=== PATIENT | female | born 2000 | race Caucasian/White ===

== ENCOUNTER 2023-12-24 10:50 | Emergency (ER) | payer SELFPAY ==
[2023-12-24 10:54] VITALS: BP 148/86; PULSE 79; TEMP 36.4; O2SAT 97; BMI 44.9
--- NOTE | 2023-12-24 11:19 | ED_ITS ---
HPI HPI - General Adult General Chief complaint: Abdominal Pain Stated complaint: BLOOD IN STOOL, SORE THROAT Time Seen by Provider: 12/24/23 10:54 Source: patient Mode of arrival: walk-in Limitations: no limitations History of Present Illness HPI narrative: 23 F to female to the emergency Department with multiple medical complaints. Sore Throat- Patient reports that she has had a sore throat that has been ongoing for several weeks to months. She's been seen by urgent care and her primary care doctor. She's been on several rounds of medications and has not improved. It is worse at night. Associated with the cough at night. Rectal discomfort/bleeding- patient has had intermittent difficulties with hemorrhoids for several years. She is under the care of gastrointestinal. He cannot get her in for an appointment. She reports a small amount of bright red blood with stools. She reports discomfort in bulging in the inguinal region consistent with past hemorrhoids. Related Data Previous Rx's ?Medication ?Instructions ?Recorded hydrocortisone 1 % topical cream 1 applic topical BID PRN rectal 12/24/23 (Proctocort) pain 7 days #28.35 grams lidocaine 5 %-phenylephrine 0.25 1 applic topical TID PRN 12/24/23 %-glycern 14.4 %-petrolatm 15 % hemorrhoids #28 grams cream (Preparation H Rapid Relief-Lidocaine) loratadine 10 mg tablet (Claritin) 10 mg PO DAILY #30 tabs 12/24/23 omeprazole 20 mg tablet,delayed 20 mg PO DAILY 8 weeks #56 tabs 12/24/23 release Allergies Allergy/AdvReac Type Severity Reaction Status Date / Time No Known Drug Allergies Allergy Verified 12/24/23 11:00 Opioid HPI Opioid Management Most Recent Opioid Data: No Data to Display Review of Systems ROS Status of ROS 10 or more systems reviewed and unremark able except as noted in history and below Exam Narrative Exam Narrative: VITALS: I have reviewed the triage vital signs. GENERAL: Well developed, well appearing adult in no acute distress. NEURO: Alert and oriented. Moves all extremities. Face is symmetric and expressive. EYES: PERRL. No scleral icterus or conjunctival injection. No discharge. HENT: Normocephalic, atraumatic. Hearing is grossly intact. Nares grossly patent and without discharge. Mucous membranes moist. Uvula midline. No unilateral peritonsillar swelling. No posterior pharyngeal erythema. NECK: No JVD. Patient moves neck without restriction. GI/: Abdomen is soft and non-tender. Normoactive bowel sounds. EXTREMITIES: Symmetric muscle bulk. No joint swelling. No clubbing, cyanosis, or deformity. SKIN: Warm and dry. Normal turgor. No rash or lesions appreciated. PSYCH: Mood, affect, and interaction is appropriate to the setting. Constitutional Vital Signs, click to edit/add: Last Vital Signs Temp 97.6 F 12/24/23 10:54 Pulse 79 12/24/23 10:54 Resp 16 12/24/23 10:54 BP 148/86 H 12/24/23 10:54 Pulse Ox 97 12/24/23 10:54 O2 Del Method Room Air 12/24/23 10:54 Course Vital Signs Vital signs: Vital Signs Temperature 97.6 F 12/24/23 10:54 Pulse Rate 79 12/24/23 10:54 Respiratory Rate 16 12/24/23 10:54 Blood Pressure 148/86 H 12/24/23 10:54 Pulse Oximetry 97 12/24/23 10:54 Oxygen Delivery Method Room Air 12/24/23 10:54 Temperature 97.6 F 12/24/23 10:54 Pulse Rate 79 12/24/23 10:54 Respiratory Rate 16 12/24/23 10:54 Blood Pressure 148/86 H 12/24/23 10:54 Pulse Oximetry 97 12/24/23 10:54 Oxygen Delivery Method Room Air 12/24/23 10:54 Medical Decision Making MDM Narrative Medical decision making narrative: 23-year-old female multiple complaints. Vital stable, the patient is afebrile. History and clinical exam associated with the sore throat are most consistent with GERD. We'll trial of omeprazole. She'll follow-up with her gastrointestinal doctor. Patient is not comfortable having male doctor examine her anus. She reports symptoms typical leg treatment of past hemorrhoids. We'll prescribe her Preparation H/lidocaine and rectal hydrocortisone. She'll follow-up with her gastrointestinal doctor. She also reports she has had some increased sneezing and believe she has ALLERGIES. Claritin is prescribed. Patient follow-up with primary care doctor. Return precautions were discussed. All questions were answered. The patient was discharged home. Medical Records Medical records reviewed: Yes I reviewed the patient's medical records Discharge Plan Discharge Stand Alone Forms: Portal Instructions Chief Complaint: Abdominal Pain Clinical Impression: Acute hemorrhoid, Allergies, Gastroesophageal reflux disease Patient Disposition: Home, Self-Care Time of Disposition Decision: 11:11 Condition: Good Mode of Transportation: Private Vehicle Prescriptions / Home Meds: New loratadine [Claritin] 10 mg tablet 10 mg PO DAILY Qty: 30 0RF hydrocortisone [Proctocort] 1 % cream 1 applic topical BID PRN (Reason: rectal pain) 7 Days Qty: 28.35 0RF Preparation H Rapid Rlf-Lidocn 5-0.25-14.4-15 % cream 1 applic topical TID PRN (Reason: hemorrhoids) Qty: 28 0RF omeprazole 20 mg tablet,delayed release (DR/EC) 20 mg PO DAILY 56 Days Qty: 56 0RF Print Language: [place] Instructions: Hemorrhoids (ED), GERD (Gastroesophageal Reflux Disease) (ED) Additional Instructions: Follow-up with your gastrointestinal doctor and primary care doctor. Referrals: Physician,Non-Staff, MD [Primary Care Provider] - 1 week
== END 2023-12-24 11:27 | disposition home or self-care (01) ==
PROVIDERS: Emergency Provider Student in an Organized Health Care Education/Training Program
DX: K64.9 Unspecified hemorrhoids (principal); K21.9 Gastro-esophageal reflux disease without esophagitis; T78.40XA Allergy, unspecified, initial encounter
CPT/HCPCS: 99283

== ENCOUNTER 2023-12-26 10:23 | Emergency (ER) | payer MEDICAID, SELFPAY ==
[2023-12-26 10:26] VITALS: BP 162/103; PULSE 107; TEMP 36.9; O2SAT 97; BMI 53.2
--- OUTSIDE RECORDS SUMMARY | 2023-12-26 10:32 | XMS_ITS | CCD ---
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 Comment on above: Performed By: #### TIBC #### [address] [address] Protein [Mass/Vol] 7.7 g/dL Normal 6.5-8.1 [facility] Comment on above: Performed By: #### TIBC #### [address] [address] Sodium [Moles/Vol] 135 mmol/L Normal 133-142 [facility] Comment on above: Performed By: #### TIBC #### [address] [address] Urea nitrogen [Mass/Vol] 13 mg/dL Normal 8-26 [facility] Comment on above: Performed By: #### TIBC #### [address] [address] Urea nitrogen/Creatin ine [Mass ratio] 19.7 mg/mg Normal 10.0-20.0 [facility] Comment on above: Performed By: #### TIBC #### [address] [address] Ferritinon 11-09-2023 Ferritin Lvl 160.7 ng/mL Normal 11.0-306.8 [facility] Comment on above: Performed By: #### TIBC #### [address] [address] Hgb A1con 11-09-2023 Glucose [Mass/Vol] 97 mg/dL Normal 68-114 [facility] Comment on above: Result Comment: Mathematical Calc approx . The mean gluc equivalency of A1c Performed By: #### T IBC #### [address] [address] Hgb A1c 5.0 % A1c Normal 4.0-5.6 [facility] Comment on above: Result Comment: Reference Range: 4.0 - 5.6 % Normal 5.7 - 6.4 % Pre-Diabetes > 6.5 % Diabetes Performed By: #### T IBC #### [address] [address] Insulinon 11-09-2023 Insulin Lvl 19.03 mcIU/mL Normal 1.90-23.00 [facility] Comment on above: Performed By: #### CBCI #### [address] [address] Lipid Panelon 11-09-2023 Cholesterol in LDL [Mass/Vol] 125 mg/dL High 0-99 [facility] Comment on above: Result Comment: The equation being used in this calculation is LDL = (Chol - HDL) - (Trig / 5) The optimal value of LDL for individual patients may vary. The patient's history of Artherosclerosis and other cardiac risk factors should be considered. Performed By: #### T IBC #### [address] [address] Cardiac Risk 4.5 Normal [facility] Comment on above: Result Comment: Men Women 1/2 Average 3.43 3.27 Average 4.97 4.44 2x Average 9.55 7.05 3x Average 23.99 11.04 Performed By: #### T IBC #### [address] [address] Cholesterol [Mass/Vol] 183 mg/dL Normal 25-199 [facility] Comment on above: Result Comment: 0 - 17 years of age: Desirable 0-170 Borderline High 170-199 High >=200 18 years and older: Acceptable <200 Borderline High 200-239 High >=240 Performed By: #### T IBC #### [address] [address] Cholesterol in HDL [Mass/Vol] 40.5 mg/dL Normal 40.0-60.0 [facility] Comment on above: Performed By: #### TIBC #### [address] [address] Cholesterol in VLDL [Mass/Vol] 18 mg/dL Normal 8-39 [facility] Comment on above: Performed By: #### TIBC #### [address] [address] Triglyceride [Mass/Vol] 89 mg/dL Normal [facility] Comment on above: Result Comment: 0 - 17 years of age: Trig 90 - 129 Borderline High Trig => 130 High 18 years and older: Trig 150 - 199 Borderline High Trig 200 - 499 High Trig =>500 Very High Performed By: #### T IBC #### [address] [address] TIBCon 11-09-2023 Iron [Mass/Vol] 85 ug/dL Normal 28-170 [facility] Comment on above: Performed By: #### TIBC #### [facility] [address] [place] [address] Iron Sat 25.9 % Normal >=16.0 [facility] Comment on above: Performed By: #### TIBC #### [address] [address] TIBC 328 mcg/dL Normal 261-478 [facility] Comment on above: Performed By: #### TIBC #### [address] [address] Transferrin [Mass/Vol] 234 mg/dL Normal 192-382 [facility] Comment on above: Performed By: #### TIBC #### [address] [address] TSH w/ Rflx Free T4on 2023 TSH Qn 1.00 m[IU]/L Normal 0.45-5.33 [facility] Comment on above: Result Comment: Reference Ranges for ind ividuals from to 18 years of age were obtained from The Lulu Hammond Handbook (20 ed) published by [facility]. Reference Ranges for Females: Females, 1st Trimester 0.05 ? 3.7 uIU/mL Females, 2nd Trimester 0.31 ? 4.35 uIU/mL Females, 3rd Trimester 0.41 ? 5.18 uIU/mL Performed By: #### T IBC #### [address] [address] UA w Culture if Indon 2023 Color (U) Light-Yellow Normal Yellow [facility] Comment on above: Performed By: #### UCI #### [address] [address] Ketones Ql (U) Negative Normal Negative [facility] Comment on above: Performed By: #### UCI #### [address] [address] UA Blood 3+ Abnormal Negative [facility] Comment on above: Performed By: #### UCI #### [address] [address] UA Clarity Clear Normal Clear [facility] Comment on above: Performed By: #### UCI #### [address] [place] [address] UA Glucose Normal Normal Negative [facility] Comment on above: Performed By: #### UCI #### [address] [place] [address] UA Leukocyte Esterase Negative Normal Negative [facility] Comment on above: Performed By: #### UCI #### [address] [place] [address] UA Nitrite Negative Normal Negative [facility] Comment on above: Performed By: #### UCI #### [address] [place] [address] UA pH 5.5 Normal 4.5 - 7.8 [facility] Comment on above: Performed By: #### UCI #### [address] [address] UA Protein 10 mg/dL Normal Negative [facility] Comment on above: Performed By: #### UCI #### [address] [place] [address] UA Source Clean Catch Normal [facility] Comment on above: Performed By: #### UCI #### [address] [address] UA Spec Grav 1.027 Normal 1.003-1.035 [facility] Comment on above: Performed By: #### UCI #### [address] [place] [address] UA Urobilinogen Normal Normal 0.2 - 1.0 [facility] Comment on above: Performed By: #### UCI #### [address] [place] [address] Urobilinogen (U) [Mass/Vol] Negative Normal Negative [facility] Comment on above: Performed By: #### UCI #### [address] [address] HPV Typingon 07-02-2023 HPV Type 16 Negative Normal Negative [facility] Comment on above: Result Comment: The APTIMA HPV 16, 18/45 Assay is an in-vitro nucleic acid amplification test of the qualitative detection of HPV types 16 and 18/45 in cervical specimens. The APTIMA HPV 16, 18/45 Genotype Assay should be interpreted in conjunction with other laboratory and clinical data available to the clinician. Performed By: #### C BCI #### [place] [address] HPV Type 18/45 Negative Normal Negative [facility] Comment on above: Result Comment: The APTIMA HPV 16, 18/45 Assay is an in-vitro nucleic acid amplification test of the qualitative detection of HPV types 16 and 18/45 in cervical specimens. The APTIMA HPV Assay detects E6/E7 viral messenger RNA (mRNA) of the high-risk HPV types 16, and 18/45 only. Detection of high-risk HPV mRNA is dependent on the number of copies present in the specimen and may be affected by specimen collection methods, patient factors, stage of infection and the presence of interfering substances. The APTIMA HPV 16, 18/45 Genotype Assay should be interpreted in conjunction with other laboratory and clinical data available to the clinician. Performed By: #### C BCI #### [place] [id number] HPV DNAon 06-30-2023 HPV DNA Scrn Positive Abnormal Negative [facility] Comment on above: Result Comment: The APTIMA HPV Assay is an in-vitro nucleic acid amplification test for the qualitative detection of HPV in cervical specimens. The APTIMA HPV Assay should be interpreted in conjunction with other laboratory and clinical data available to the clinician. The APTIMA HPV Assay detects E6/E7 viral messenger RNA (mRNA) of the high-risk HPV types 16, 18, 31, 33, 35, 39, 45, 51, 52, 56, 58, 59, 66, and 68. Detection of high-risk HPV mRNA is dependent on the number of copies present in the specimen and may be affected by specimen collection methods, patient factors, stage of infection, and the presence of interfering substances. Performed By: #### T IBC #### [place] [id number] Active Directory Specialist Cytology Reporton 2022 Active Directory Specialist Cytology Report Clinical Information Specimen Collection Date: 06/15/23 LMP: n/a Type of specimen: Cervical/endocervical Hormonal Rx: Yes HPV testing ordered only if ASCUS Pap. Chlamydia/GC DNA Probe ordered also. Purpose of smear: Regular periodic exam/screening Pap GY Specimen A LP Pap Smear, Rflx ASCUS, GC, Chlamydia Adequacy Alpha Response SAT ANATOMICPATHOLOGY Endocervical Alpha Response EC/TZONE + ANATOMICPATHOLOGY Statement of Adequacy Satisfactory for Evaluation. Transformation Zone Present. Diagnosis Alpha Response GY ASC-US ANATOMICPATHOLOGY Diagnosis EPITHELIAL CELL ABNORMALITY Atypical Squamous Cells of Undetermined Significance. [id number] IONAL Completed by: Veronica Perkins MD PhD (Electronically signed by) 06/23/23 08:19 EDT GY Disclaimer Interp The PAP smear is a screening test with an inherent, but low, probability of error. A negative report indicates a low probability of significant cervical pathology. Your patient should be reminded to consult you immediately if she experiences new symptoms and to continue having regular PAP smears in the future. GY Disclaimer Alpha Active Directory Specialist Disclaimer ANATOMICPATHOLOGY Normal [facility] Comment on above: Performed By: #### GYNCYTREP #### [facility] (DEFAULT) [address] [place] [address] Chlam & GC, DNAon 06-17-2023 Chlamydia, DNA Negative Normal Negative [facility] Comment on above: Result Comment: The APTIMA Combo 2 Assay is a target amplification nucleic acid probe test that utilizes target capture for the in-vitro qualitative detection of ribosomal RNA (rRNA) form Chlamydia trachomatis/CT and /or Neisseria gonorrhoeae/GC. A negative result does not preclude the presence of a CT or GC infection because results are dependent of adequate specimen collection, absence of inhibitors and sufficient rRNA to be detected. Results from the APTIMA Combo 2 Assay should be interpreted in conjunction with other laboratory and clinical data available to the clinician. Performed By: #### C BCI #### [facility] [address] [place] [address] Gonorrhea, DNA Negative Normal Negative [facility] Comment on above: Result Comment: The APTIMA Combo 2 Assay is a target amplification nucleic acid probe test that utilizes target capture for the in-vitro qualitative detection of ribosomal RNA (rRNA) form Chlamydia trachomatis/CT and /or Neisseria gonorrhoeae/GC A negative result does not preclude the presence of a CT or GC infection because results are dependent of adequate specimen collection, absence of inhibitors and sufficient rRNA to be detected. Results from the APTIMA Combo 2 Assay should be interpreted in conjunction with other laboratory and clinical data available to the clinician. 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 Previously on Depo, Last Depo administered 02/17/23 History of Present Illness Denies breast changes Denies family history of male breast cancer, early-onset female breast cancer Denies family history of ulcerative colitis, Crohn's disease, early colon cancer Denies heavy bleeding, worsening headache, significant mood changes or weight gain on Depo-Provera Notes during last 12 months: New sex partner; patient notes sex was consensual Denies history of uncontrolled hypertension, DVT on OCs/, migraine with aura, lupus, family history of thrombophilia or DVT on OCs/ Pelvic Pain: No Painful Sex: No Abnormal Vaginal Discharge: No Abnormal Vaginal Bleeding: No Vaginal Dryness: No Vaginal Itch: No Vaginal Burning: No Vaginal Odor: No Hot Flashes: No Night Sweats: No Breast Lump: No Breast Pain: No Contraception Type: control injections Menstrual Periods: No Sexually Active: Yes Partners in Last 12 Months: 2 Review of Systems Head Migraines: No Headaches: No Eyes Corrective Lenses: None Blurred vision: None Ears, Nose, Throat Congestion: No Vertigo: No Sore throat: No Nasal drainage: No Cardio Respiratory Peripheral edema: No Heart Irregularity: No Chest Pain: No Shortness of Breath: No Gastrointestinal Bloating: No Reflux/heartburn: No Abdominal Pain: No Change in bowel habits: No Urinary Urinary Incontinence: No Urinary frequency: Yes Nocturia: No Urgency: No Painful urination: No Musculoskeletal Backpain: No Muscle aches: No Joint pain: No Integumentary Lesions: No Moles: No Acne: Yes Hair changes: No PsychoSocial Sleep Problems: Yes Anxiety: Yes Suicidal Ideation: No Homicidal Ideation: No Depression: Yes Hematologic/Lymphatic Lymphadenopathy: No Thromboembolism: No Bruising: Yes Bleeding tendencies: Yes Endocrine Abnormal weight gain: Yes Abnormal weight loss: No Fatigue: No Physical Exam Vitals & Measurements BP: 122/76 HT: 163 cm WT: 127.5 kg WT: 127.5 kg (Dosing) BMI: 47.99 Assist: selina franks General: Alert, in no acute distress. Neurological: Orientation appropriate. Psychiatric: Mood and affect appropriate. HEENT: Normocephalic, extraocular muscles intact. Oropharynx: Without erythema. No ulcerations of lips, gingiva, mucosal surfaces. Neck: No thyromegaly noted. Lungs: Clear to auscultation bilaterally. Heart: Normal rate, rhythm, without murmurs. Abdomen: Soft, non-tender, without rebound. No hernia noted. Nonpalpable liver, spleen. Breasts: Negative for masses, nipple discharge. Anus/Perineum: Negative for lesions. Urethra: Negative for lesions. Vulva: Negative lesions; without erythema. Vagina: No abnormal color, discharge. Cervix: No lesions, contact bleeding. Uterus: Mobile, nontender. Adnexa: Nontender. Lymphatic: No axillary, inguinal lymphadenopathy noted. Skin: Warm, dry without lesions. Additional Vitals BP Position/Location: Sitting, Right arm Assessment/Plan 1. Encounter for routine gynecological examination with Papanicolaou smear of cervix A: annual: Pap B: breast health: mammogram (every other year in 40s) C: colon ca screening: colonoscopy at 45 due to no family history of IBD D: contraception: Declines Depo-Provera; offered ring, patch; requests OCs E: social: work [employer] [place] Ordered: Pathology Pap Smear Request 2. Routine screening for STI (sexually transmitted infection) STI screening: Recommended annual GC/CT screening until age 25 Previously screened for HIV, hepatitis C virus (negative) Use condoms to protect yourself from STI's Recommend 400-800 mcg of folic acid daily in child bearing age and not using reliable contraception Return to office if you notice vaginal or urinary symptoms, such as burning, discharge, or odor as these symptoms should be evaluated and treated Emphasized the importance of maintaining adequate dietary intake of calcium (1 gram/day), supplementation of vitamin D (600 IU's/day) to decrease reversible bone loss Ordered: Hepatitis C Ab w/reflex HCV RNA Qnt, PCR HIV-1 and HIV-2 Ab, p24 Ag Screen 3. General counselling and advice on contraception Rx; Contraindication to combined hormonals Ordered: norgestimate-ethinyl estradiol, 1 tabs, Oral, Daily, # 28 tabs, 12 Refill(s), Pharmacy: [facility]/pharmacy #[id number] Medical Decision Making Chronic conditions NOT treated during this visit that affected my overall medical decision making: [] Treatment plans discussed but not opted for at this time: [] Prescribed medication that requires intensive monitoring for toxicity: [] I have reviewed the patient?s medication list for medication interactions/contrain dications and/or for upcoming procedures: [yes or no] Time Spent with the Patient I have personally spent [] minutes on this date, directly related to today's patient visit, including pre and post vis (more content not included)... Normal [facility] Patient Educationon 05-18-20 Patient Education Mental and Behavioral Health Attention Deficit Hyperactivity Disorder, Adult Attention deficit hyperactivity disorder (ADHD) is a mental health disorder that starts during childhood (neurodevelopmental disorder). For many people with ADHD, the disorder continues into the adult years. Treatment can help you manage your symptoms. What are the causes? The exact cause of ADHD is not known. Most experts believe genetics and environmental factors contribute to ADHD. What increases the risk? The following factors may make you more likely to develop this condition: ? Having a family history of ADHD. ? Being male. ? Being born to a mother who smoked or drank alcohol during . ? Being exposed to lead or other toxins in the womb or early in life. ? Being born before 37 weeks of (prematurely) or at a low weight. ? Having experienced a brain injury. What are the signs or symptoms? Symptoms of this condition depend on the type of ADHD. The two main types are inattentive and hyperactive-impulsive . Some people may have symptoms of both types. Symptoms of the inattentive type include: ? Difficulty paying attention. ? Making careless mistakes. ? Not following instructions. ? Being disorganized. ? Avoiding tasks that require time and attention. ? Losing and forgetting things. ? Being easily distracted. Symptoms of the hyperactive-impulsive type include: ? Restlessness. ? Talking too much. ? Interrupting. ? Difficulty with: ? Sitting still. ? Feeling motivated. ? Relaxing. ? Waiting in line or waiting for a turn. In adults, this condition may lead to certain problems, such as: ? Keeping jobs. ? Performing tasks at work. ? Having stable relationships. ? Being on time or keeping to a schedule. How is this diagnosed? This condition is diagnosed based on your current symptoms and your history of symptoms. The diagnosis can be made by a health care provider such as a primary care provider or a mental health wound care coordinator. Your health care provider may use a symptom checklist or a behavior rating scale to evaluate your symptoms. He or she may also want to talk with people who have observed your behaviors throughout your life. How is this treated? This condition can be treated with medicines and behavior therapy. Medicines may be the best option to reduce impulsive behaviors and improve attention. Your health care provider may recommend: ? Stimulant medicines. These are the most common medicines used for adult ADHD. They affect certain chemicals in the brain (neurotransmitters) and improve your ability to control your symptoms. ? A non-stimulant medicine for adult ADHD (atomoxetine). This medicine increases a neurotransmitter called norepinephrine. It may take weeks to months to see effects from this medicine. Counseling and behavioral management are also important for treating ADHD. Counseling is often used along with medicine. Your health care provider may suggest: ? Cognitive behavioral therapy (CBT). This type of therapy teaches you to replace negative thoughts and actions with positive thoughts and actions. When used as part of ADHD treatment, this therapy may also include: ? Coping strategies for organization, time management, impulse control, and stress reduction. ? Mindfulness and meditation training. ? Behavioral management. You may work with a riding coach who is specially trained to help people with ADHD manage and organize activities and function more effectively. Follow these instructions at home: Medicines ? Take [id number]-[id number] and prescription medicines only as told by your health care provider. ? Talk with your health care provider about the possible side effects of your medicines and how to manage them. Lifestyle ? Do not use drugs. ? Do not drink alcohol if: ? Your health care provider tells you not to drink. ? You are , may be , or are planning to become . ? If you drink alcohol: ? Limit how much you use to: ? 0?1 drink a day for women. ? 0?2 drinks a day for men. ? Be aware of how much alcohol is in your drink. In the [place] one drink equals one 12 oz bottle of beer (355 mL), one 5 oz glass of wine (148 mL), or one 1? oz glass of hard liquor (44 mL). ? Get enough sleep. ? Eat a healthy diet. ? Exercise regularly. Exercise can help to reduce stress and anxiety. General instructions ? Learn as much as you can about adult ADHD, and work closely with your health care providers to find the treatments that work best for you. ? Follow the same schedule each day. ? Use reminder devices like notes, calendars, and phone apps to stay on time and organized. ? Keep all follow-up visits as told by your health care provider and therapist. This is important. Where to find more information A health care provider may be able to recommend resources that are available online (more content not included)... Normal [facility] [place] US Head/Neck Soft Tissueon 0 04-28-2023 US Head/Neck Soft Tissue CLINICAL HISTORY: Palpable lump. EXAMINATION: Real-time sonogram of the base of the neck was performed. This was supplemented with color flow Doppler. FINDINGS: Images demonstrate normal underlying fat. There is no discrete mass. There is no lymphadenopathy or drainable fluid collection. No significant abnormality is seen in the region of concern. Final Dictated by: Robbie Regan MD Dictated DT/TM: 04/28/2023 8:21 am Signed by: Robbie Regan MD Signed (Electronic Signature): 04/28/2023 9:35 am (If Report Is Signed, Electronically Signed in Other Vendor System) Normal [facility] .UA Microscp Aon 04-21-2023 UA Mucus Present Abnormal Absent [facility] Comment on above: Performed By: #### TIBC #### [facility] [address] [place] [address] UA RBC Quant 4 /HPF Normal 0-5 [facility] Comment on above: Performed By: #### TIBC #### [facility] [address] [place] [address] UA Squepi Cells Quant 10 /HPF Normal 0-29 [facility] Comment on above: Performed By: #### TIBC #### [address] [address] UA WBC Quant 8 /HPF High 0-5 [facility] Comment on above: Performed By: #### TIBC #### [address] [address] .eGFRon 04-21-2023 GFR/1.73 sq M.predicted MDRD (S/P/Bld) [Vol rate/Area] mL/min/{1.73_m2} Normal >=60 [facility] Comment on above: Order Comment: Order added by Jose Miguel murdock Result Comment: [facility] have implemented the eGFR calculation approach that does not have a coefficient for race and that conforms to the NKF-ASN Task Force Recommendations. Stages of Chronic Kidney Disease GFR Stage 3a Mild to moderate loss of kidney function 59 to 45 Stage 3b Moderate to severe loss of kidney function 44 to 33 Stage 4 Severe loss of kidney function 29 to 15 Stage 5 Kidney failure Less than 15 GFR calculated using the CKD-Epi Creatinine Equation (2020): eGFR = 142 X min(SCr/?, 1)? X max(SCr /?, 1)-1.200 X 0.9938Age X 1.012 [if female] Abbreviations/Units: eGFR (estimated glomerular filtration rate) = mL/min/1.73 m2 SCr (standardized serum creatinine) = mg/dL ? = 0.7 (females) or 0.9 (males) ? = -0.241 (females) or -0.302 (males) min = indicates the minimum of SCr/? or 1 max = indicates the maximum of SCr/? or 1 Age = years Performed By: #### C BCI #### [facility] [address] [place] [id number] B12/Folate Lvlon 04-21-2023 Cobalamin (Vitamin B12) [Mass/Vol] 238 pg/mL Normal 180-914 [facility] Comment on above: Performed By: #### B12FO #### [address] [address] Folate Lvl 21.3 ng/mL Normal >=5.9 [facility] Comment on above: Result Comment: A WHO Technical Consulta tion has determined that deficient Folate concentrations are considered to be less than 4 ng/mL. Performed By: #### B 12FO #### [address] [address] CBCon 04-21-2023 Erythrocyte distribution width (RBC) [Ratio] 12.5 % Normal 11.6-14.8 [facility] Comment on above: Performed By: #### CBCI #### [place] [id number] Hematocrit (Bld) [Volume fraction] 43.7 % Normal 36.0-46.0 [facility] Comment on above: Performed By: #### CBCI #### [place] [id number] Hemoglobin (Bld) [Mass/Vol] 15.2 g/dL Normal 12.0-16.0 [facility] Comment on above: Performed By: #### CBCI #### [place] [id number] MCH (RBC) [Entitic mass] 30.0 pg Normal 27.0-35.0 [facility] Comment on above: Performed By: #### CBCI #### [place] [id number] MCHC 34.8 % Normal 31.0-37.0 [facility] Comment on above: Performed By: #### CBCI #### [place] [id number] MCV (RBC) [Entitic vol] 86.2 fL Normal 80.0-100.0 [facility] Comment on above: Performed By: #### CBCI #### [address] [address] Platelet 333 x10*3/mcL Normal 150-450 [facility] Comment on above: Performed By: #### CBCI #### [address] [address] Platelet mean volume (Bld) [Entitic vol] 7.0 fL Normal 6.7-10.6 [facility] Comment on above: Performed By: #### CBCI #### [address] [address] RBC 5.07 x10*6/mcL Normal 3.80-5.20 [facility] Comment on above: Performed By: #### CBCI #### [address] [address] WBC 11.4 x10*3/mcL High 4.5-11.0 [facility] Comment on above: Performed By: #### CBCI #### [address] [address] CMPon 04-21-2023 Albumin [Mass/Vol] 4.4 g/dL Normal 3.2-4.9 [facility] Comment on above: Performed By: #### CBCI #### [address] [address] Albumin/Globulin [Mass ratio] 1.1 {ratio} Normal 1.1-2.2 [facility] Comment on above: Performed By: #### CBCI #### [address] [address] Bili Total 0.9 mg/dL Normal 0.3-1.2 [facility] Comment on above: Performed By: #### CBCI #### [address] [address] Creatinine [Mass/Vol] 0.86 mg/dL Normal 0.44-1.03 [facility] Comment on above: Performed By: #### CBCI #### [address] [address] Protein [Mass/Vol] 8.3 g/dL High 6.5-8.1 [facility] Comment on above: Performed By: #### CBCI #### [address] [address] Urea nitrogen [Mass/Vol] 15 mg/dL Normal 8-26 [facility] Comment on above: Performed By: #### CBCI #### [address] [address] Urea nitrogen/Creatin ine [Mass ratio] 17.4 mg/mg Normal 10.0-20.0 [facility] Comment on above: Performed By: #### CBCI #### [address] [address] Alk Phos 71 IU/L Normal 32-91 [facility] Comment on above: Performed By: #### CBCI #### [address] [address] ALT [Catalytic activity/Vol] 31 U/L Normal 14-54 [facility] Comment on above: Performed By: #### CBCI #### [address] [address] Anion gap [Moles/Vol] 13 mmol/L Normal 7-17 [facility] Comment on above: Performed By: #### CBCI #### [address] [address] AST [Catalytic activity/Vol] 23 U/L Normal 15-41 [facility] Comment on above: Performed By: #### CBCI #### [address] [address] Calcium [Mass/Vol] 9.6 mg/dL Normal 8.5-10.3 [facility] Comment on above: Performed By: #### CBCI #### [address] [address] Chloride [Moles/Vol] 108 mmol/L Normal 98-110 [facility] Comment on above: Performed By: #### CBCI #### [address] [address] CO2 [Moles/Vol] 24 mmol/L Normal 22-32 [facility] Comment on above: Performed By: #### CBCI #### [address] [place] [address] Glucose [Mass/Vol] 76 mg/dL Normal 70-99 [facility] Comment on above: Performed By: #### CBCI #### [address] [address] Potassium [Moles/Vol] 3.7 mmol/L Normal 3.4-4.8 [facility] Comment on above: Performed By: #### CBCI #### [address] [address] Sodium [Moles/Vol] 141 mmol/L Normal 133-142 [facility] Comment on above: Performed By: #### CBCI #### [address] [address] Hgb A1con 04-21-2023 Glucose [Mass/Vol] 97 mg/dL Normal 68-114 [facility] Comment on above: Result Comment: Mathematical Calc approx . The mean gluc equivalency of A1c Performed By: #### T IBC #### [address] [address] Hgb A1c 5.0 % A1c Normal 4.0-5.6 [facility] Comment on above: Result Comment: Reference Range: 4.0 - 5.6 % Normal 5.7 - 6.4 % Pre-Diabetes > 6.5 % Diabetes Performed By: #### T IBC #### [address] [address] Lipid Panelon 04-21-2023 Cholesterol in LDL [Mass/Vol] 143 mg/dL High 0-99 [facility] Comment on above: Result Comment: The equation being used in this calculation is LDL = (Chol - HDL) - (Trig / 5) The optimal value of LDL for individual patients may vary. The patient's history of Artherosclerosis and other cardiac risk factors should be considered. Performed By: #### C BCI #### [address] [address] Cholesterol in VLDL [Mass/Vol] 19 mg/dL Normal 8-39 [facility] Comment on above: Performed By: #### CBCI #### [address] [address] Triglyceride [Mass/Vol] 94 mg/dL Normal [facility] Comment on above: Result Comment: 0 - 17 years of age: Trig 90 - 129 Borderline High Trig => 130 High 18 years and older: Trig 150 - 199 Borderline High Trig 200 - 499 High Trig =>500 Very High Performed By: #### C BCI #### [address] [address] Cardiac Risk 4.6 Normal [facility] Comment on above: Result Comment: Men Women 1/2 Average 3.43 3.27 Average 4.97 4.44 2x Average 9.55 7.05 3x Average 23.99 11.04 Performed By: #### C BCI #### [address] [address] Cholesterol [Mass/Vol] 206 mg/dL High 25-199 [facility] Comment on above: Result Comment: 0 - 17 years of age: Desirable 0-170 Borderline High 170-199 High >=200 18 years and older: Acceptable <200 Borderline High 200-239 High >=240 Performed By: #### C BCI #### [address] [address] Cholesterol in HDL [Mass/Vol] 44.6 mg/dL Normal 40.0-60.0 [facility] Comment on above: Performed By: #### CBCI #### [address] [address] TIBCon 04-21-2023 Iron Sat 33.9 % Normal >=16.0 [facility] Comment on above: Performed By: #### TIBC #### [address] [address] TIBC 330 mcg/dL Normal 261-478 [facility] Comment on above: Performed By: #### TIBC #### [address] [address] Transferrin [Mass/Vol] 236 mg/dL Normal 192-382 [facility] Comment on above: Performed By: #### TIBC #### [address] [address] Iron [Mass/Vol] 112 ug/dL Normal 28-170 [facility] Comment on above: Performed By: #### TIBC #### [address] [address] TSH w/ Rflx Free T4on 2022 TSH Qn 1.09 m[IU]/L Normal 0.45-5.33 [facility] Comment on above: Result Comment: Reference Ranges for ind ividuals from to 18 years of age were obtained from The Lulu Hammond Handbook (20 ed) published by [facility]. Reference Ranges for Females: Females, 1st Trimester 0.05 ? 3.7 uIU/mL Females, 2nd Trimester 0.31 ? 4.35 uIU/mL Females, 3rd Trimester 0.41 ? 5.18 uIU/mL Performed By: #### T SHRT4 #### [address] [address] UA w Culture if Indon 2022 Color (U) Yellow Normal [facility] Comment on above: Performed By: #### TIBC #### [address] [address] Ketones Ql (U) Negative Normal Negative [facility] Comment on above: Performed By: #### TIBC #### [address] [address] UA Blood Negative Normal Negative [facility] Comment on above: Performed By: #### TIBC #### [address] [address] UA Clarity Clear Normal [facility] Comment on above: Performed By: #### TIBC #### [address] [address] UA Glucose Normal Normal Negative [facility] Comment on above: Performed By: #### TIBC #### [address] [address] UA Leukocyte Esterase 75 Abnormal Negative [facility] Comment on above: Performed By: #### TIBC #### [address] [address] UA Nitrite Negative Normal Negative [facility] Comment on above: Performed By: #### TIBC #### [address] [place] [address] UA pH 6.0 Normal 4.5 - 7.8 [facility] Comment on above: Performed By: #### TIBC #### [address] [address] UA Protein 20 mg/dL Normal Negative [facility] Comment on above: Performed By: #### TIBC #### [address] [address] UA Source Clean Catch Normal [facility] Comment on above: Performed By: #### TIBC #### [address] [address] UA Spec Grav 1.034 Normal 1.003-1.035 [facility] Comment on above: Performed By: #### TIBC #### [address] [address] UA Urobilinogen Normal Normal 0.2 - 1.0 [facility] Comment on above: Performed By: #### TIBC #### [address] [address] Urobilinogen (U) [Mass/Vol] Negative Normal Negative [facility] Comment on above: Performed By: #### TIBC #### [address] [address] ED Clinical Summaryon 2022 ED Clinical Summary [place] [id number] ED Clinical Summary Person Information Name: Sandra Franks/[facility] Age: 22 Years : 2000 Sex: Female PCP: Marital Status: Single Phone: Race: White Ethnicity: Not or Language: Indonesian Visit Reason: Skin rash; skin rash Acuity: 5 Enc Type: Emergency Med Service: Emergency Medicine Arrival: 04/01/2023 20:12:58 Discharge: 04/01/2023 21:00:00 LOS: 000 00:48 Checkin: 04/01/2023 20:12:58 Checkout: 04/01/2023 21:00:00 Dispo Type: Left Without Being Seen Address: [address] [place] [id number] Provider Notes: Diagnosis: Problems No Problems Documented Smoking Status: Smoking Status Never (less than 100 in lifetime) Functional Status: Sensory Deficits: History of Falls: Mobility Assistance Prior to Admission: ADLs: Current Level of Assistance for Self-Care/Mobility: Cognitive Status: Allergies No Known Medication Allergies Laboratory or Other Results This Visit (last charted value for your 04/01/2023 visit) No Laboratory or Other Results This Visit Measurements: Height: Weight: 120 kg Blood Pressure: /81 mmHg BMI: Procedures No Procedures Documented Immunizations No Immunizations Documented This Visit Final Med List: Medications that have not changed Other Medications dextroamphetamine-amp hetamine (Adderall 30 mg oral tablet) 1 Tabs Oral (given by mouth) once a day (in the morning). Last Dose: ____ docusate (Colace 100 mg oral capsule) 1 Capsules Oral (given by mouth) 2 times a day as needed for constipation for 7 Days. Refills: 0. Last Dose: ____ medroxyPROGESTERone (Depo-Provera Contraceptive 150 mg/mL intramuscular suspension) 1 Milliliter Intramuscular (in a muscle) every 3 months. Last Dose: ____ Other Medications dextroamphetamine-amp hetamine (Adderall 30 mg oral tablet) 1 Tabs Oral (given by mouth) once a day (in the morning). docusate (Colace 100 mg oral capsule) 1 Capsules Oral (given by mouth) 2 times a day as needed for constipation for 7 Days. Refills: 0. medroxyPROGESTERone (Depo-Provera Contraceptive 150 mg/mL intramuscular suspension) 1 Milliliter Intramuscular (in a muscle) every 3 months. Care Team Members: Attending Physician: Consulting Physician: Referring Physician: Follow up: Type Location Start Finish State Annual 30 BV JEANCARLOS [place] 05/13/2023 14:00:00 05/13/2023 14:30:00 Confirmed Discharge Orders: Patient Education Information: [facility] Poison Help line: . [facility] Hotline: [place] Tobacco Quit Line: [facility] ([place], [place]) [address]: [phone] [facility] ([place], [place]) [address]: [phone] [facility] [address] [facility]. [place], [place]: [phone] Normal [facility] Gynecology Office/Clinic Not kaci 02-17-2023 Gynecology Office/Clinic Note Chief Complaint Med check. History of Present Illness Abnormal Vaginal Discharge: No Abnormal Vaginal Bleeding: No Vaginal Dryness: No Vaginal Itch: No Vaginal Burning: No Vaginal Odor: No Contraception Type: control injections Sexually Active: Yes Partners in Last 12 Months: 2 Desires to restart Depo. Last Depo injection in Sep. Prev. on Depo for 8 years total. Not currently sexually active and now back in [facility]. Denies any unprotected SI in past two months. Denies any other MARRIAGE PERFORMER concerns. Review of Systems Cough: No SOB: No Fatigue: No Fever/chills: No Nausea/vomiting: No Abdominal/pelvic pain: No Vaginal bleeding: No Physical Exam Vitals & Measurements BP: 134/84 WT: 124.5 kg WT: 124.5 kg (Dosing) General: Alert and oriented, well nourished, no acute distress. Musculoskeletal: Normal range of motion and strength, no tenderness or edema. Skin: Skin is warm, dry and pink, no rashes or lesions. Neurologic: Awake, alert and oriented x3. Additional Vitals BP Position/Location: Sitting, Right arm Assessment/Plan 1. Medication management 2. Contraceptive management Discussed consideration of alternate contraception d/t long-term Depo use and risk of bone demineralization. OCP's, NuvaRing, patch, Nexplanon and IUD's reviewed. Considering OCP's, but desires continuation of Depo at this time. UPT today, if negative restart Depo. Annual exam and possible Depo in 3 months. Medical Decision Making Chronic conditions NOT treated during this visit that affected my overall medical decision making: [] Treatment plans discussed but not opted for at this time: [] Prescribed medication that requires intensive monitoring for toxicity: [] I have reviewed the patient?s medication list for medication interactions/contrain dications and/or for upcoming procedures: [yes or no] Time Spent with the Patient I have personally spent [20] minutes on this date, directly related to today's patient visit, including pre and post visit work, for this date of service. Time listed does not include time spent on separately billable services. 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 Family History Cervical Ca: Mother. Lung cancer: Father, Grandmother (P) and Uncle. Electronically signed by Qi Shaw 02/17/23 16:07 EDT Normal [facility] Family Medicine Office/Clini c Noteon 02-02-2023 Family Medicine Office/Clinic Note Chief Complaint Medication Refills HPI Staff Sandra is a 22 year old female who presents for medication refills. [id number] Patient states that she continues to see/ F/u with her counselor. She states will be seeing her today. She continues on the Adderall as prescribed. Denies any side effects. She states has been having troubles sleeping and appetite. She has been having issues with falling/ staying asleep this has been going on for a while. Also states that she has urinary symptoms. She states does wake up in the middle of the night to the restroom states waking up about 15 times. This has been going on for years. History of Present Illness I have reviewed and verified the staff HPI to be accurate for this encounter. Patient states she also continues to have issues with overactive bladder which she has discussed in previous appointments. States she has been worked up for multiple conditions including UTIs, diabetes, and also pelvic causes with a pelvic ultrasound with no identifiable causes. She was to follow-up with a urologist however never scheduled. States she continues to have urinary frequency throughout the day and states she wakes up approximately 10-15 times during the night to urinate which does cause her to have poor quality of sleep. Denies the use of any medications or treatments for condition in the past. She denies any pain with urination, hematuria, abdominal pain/discomfort, back/flank pain, any changes in bowels. Also having issues with anxiety depression again has been an ongoing issue does follow with counseling. Patient was previously treated with Wellbutrin as well as hydroxyzine however states she is not want to follow through medication if she does not notice a significant benefit with a short period of time so to stop the medications. She denies any noted side effects from the medications however again does not feel they were working. Patient denies any identifiable factors just states has a stressful life. She denies any thoughts of self-harm or previous attempts at self-harm. Review of Systems PHQ Score Initial Depression Screen Score: 0 ROS - Provider Constitutional: fever no, chills no, sweats no, weakness no Skin: rash no, lesions no, petechiae no Eye: eye pain no, discharge no, light sensitivity no, eye irritation no, double vision no, blurring no, vision loss no ENMT: ear pain no, ear drainage no, sore throat no, nasal congestion no , nasal drainage no hoarseness no Respiratory: chest discomfort no, shortness of breath no, cough no, orthopnea no, wheezing no Cardiovascular: chest pain no, palpitations no, edema no Gastrointestinal: nausea no, vomiting no, diarrhea no Genitourinary: dysuria no, hematuria no, discharge no, urinary frequency yes, urinary urgency yes Musculoskeletal: back pain no, trauma no Neurologic: headache no, dizziness no, numbness/tingling no, weakness no Physical Exam Vitals & Measurements T: 36.7 ?C(Temporal Artery) HR: 112(Peripheral) BP: 116/74 SpO2: 97% HT: 64 in HT: 163 cm WT: 123 kg WT: 270.6 lb BMI: 46.29 General: Well developed, well nourished, in no acute distress Neck: Neck supple. No masses or palpable cervical nodes. Trachea midline. Thyroid without nodules, masses, tenderness, or enlargement Lungs: Normal respiratory effort and clear to auscultation Cardio: Regular rate and rhythm, normal S1 and S2, no murmur, no rub Abdomen: Soft, non-distended, non-tender Musculoskeletal: No CVAT to percussion Extremity: No clubbing, cyanosis, edema, or deformity, with normal ROM in both upper and lower bilateral extremities Neurologic: Grossly normal Skin: No rashes, ulcerations, or suspicious lesions to visible skin Mental Status: Alert and oriented x3. Normal mood and affect Assessment/Plan 1. Urinary frequency (R35.0: Frequency of micturition) Will start on mirabegron 25 mg daily as has been an ongoing issue with negative testing today. Did discuss possible side effects of the medication she is to notify provider if any of these present. We will follow-up in 1 month 2. Nocturia (R35.1: Nocturia) See treatment plan above 3. Anxiety with depression (F41.8: Other specified anxiety disorders) Start doxepin 25 mg at bedtime. Pt. agreeable with initiation of daily antidepressant. Discussed expectation for gradual improvement and the development of potential side effects including drowsiness, sexual dysfunction, [place] and nausea. Patient is to make follow up appointment in 1 month to assess medication tolerance and determine if adjustments are warranted. To call office if new or worsening symptoms develop or concerns arise. Reviewed when to seek emergency department evaluation - in the event suicidal ideations were to develop. Patient verbalizes understanding and agrees with the plan. 4. ADHD (F90.9: Attention-deficit hyperactivity disorder, unspecified type) Continue on Adderall as prescribed, denies any side effects on medication and is still (more content not included)... Normal [facility] Comment on above: Result Comment: Electronically Signed By : ALISSA HOUSE CNP\.jorge\Date and Time Signed: 02/02/23 14:12 EDT Patient Educationon 02-03-20 Patient Education Mental and Behavioral Health Attention Deficit Hyperactivity Disorder, Adult Attention deficit hyperactivity disorder (ADHD) is a mental health disorder that starts during childhood (neurodevelopmental disorder). For many people with ADHD, the disorder continues into the adult years. Treatment can help you manage your symptoms. What are the causes? The exact cause of ADHD is not known. Most experts believe genetics and environmental factors contribute to ADHD. What increases the risk? The following factors may make you more likely to develop this condition: ? Having a family history of ADHD. ? Being male. ? Being born to a mother who smoked or drank alcohol during . ? Being exposed to lead or other toxins in the womb or early in life. ? Being born before 37 weeks of (prematurely) or at a low weight. ? Having experienced a brain injury. What are the signs or symptoms? Symptoms of this condition depend on the type of ADHD. The two main types are inattentive and hyperactive-impulsive . Some people may have symptoms of both types. Symptoms of the inattentive type include: ? Difficulty paying attention. ? Making careless mistakes. ? Not following instructions. ? Being disorganized. ? Avoiding tasks that require time and attention. ? Losing and forgetting things. ? Being easily distracted. Symptoms of the hyperactive-impulsive type include: ? Restlessness. ? Talking too much. ? Interrupting. ? Difficulty with: ? Sitting still. ? Feeling motivated. ? Relaxing. ? Waiting in line or waiting for a turn. In adults, this condition may lead to certain problems, such as: ? Keeping jobs. ? Performing tasks at work. ? Having stable relationships. ? Being on time or keeping to a schedule. How is this diagnosed? This condition is diagnosed based on your current symptoms and your history of symptoms. The diagnosis can be made by a health care provider such as a primary care provider or a mental health wound care coordinator. Your health care provider may use a symptom checklist or a behavior rating scale to evaluate your symptoms. He or she may also want to talk with people who have observed your behaviors throughout your life. How is this treated? This condition can be treated with medicines and behavior therapy. Medicines may be the best option to reduce impulsive behaviors and improve attention. Your health care provider may recommend: ? Stimulant medicines. These are the most common medicines used for adult ADHD. They affect certain chemicals in the brain (neurotransmitters) and improve your ability to control your symptoms. ? A non-stimulant medicine for adult ADHD (atomoxetine). This medicine increases a neurotransmitter called norepinephrine. It may take weeks to months to see effects from this medicine. Counseling and behavioral management are also important for treating ADHD. Counseling is often used along with medicine. Your health care provider may suggest: ? Cognitive behavioral therapy (CBT). This type of therapy teaches you to replace negative thoughts and actions with positive thoughts and actions. When used as part of ADHD treatment, this therapy may also include: ? Coping strategies for organization, time management, impulse control, and stress reduction. ? Mindfulness and meditation training. ? Behavioral management. You may work with a riding coach who is specially trained to help people with ADHD manage and organize activities and function more effectively. Follow these instructions at home: Medicines ? Take [id number] and prescription medicines only as told by your health care provider. ? Talk with your health care provider about the possible side effects of your medicines and how to manage them. Lifestyle ? Do not use drugs. ? Do not drink alcohol if: ? Your health care provider tells you not to drink. ? You are , may be , or are planning to become . ? If you drink alcohol: ? Limit how much you use to: ? 0?1 drink a day for women. ? 0?2 drinks a day for men. ? Be aware of how much alcohol is in your drink. In the [place] one drink equals one 12 oz bottle of beer (355 mL), one 5 oz glass of wine (148 mL), or one 1? oz glass of hard liquor (44 mL). ? Get enough sleep. ? Eat a healthy diet. ? Exercise regularly. Exercise can help to reduce stress and anxiety. General instructions ? Learn as much as you can about adult ADHD, and work closely with your health care providers to find the treatments that work best for you. ? Follow the same schedule each day. ? Use reminder devices like notes, calendars, and phone apps to stay on time and organized. ? Keep all follow-up visits as told by your health care provider and therapist. This is important. Where to find more information A health care provider may be able to recommend resources that are available online (more content not included)... [facility] 12-17-2022 Lab Reports [id number] .00CD:127 [facility] Reports [id number]. 00CD:127 Normal [facility] A1C with Estimated Average G jean claude 12-16-2022 Glucose [Mass/Vol] 103 mg/dL Normal [facility] Comment on above: Result Comment: PERFORMED BY: [place] [address] PATHOLOGIST [employer] LE[employer] SEYMOUR PLEITEZ M.D. Performed By: #### C BC, A1C WT eA #### [address] HbA1c (Bld) [Mass fraction] 5.2 % Normal 4.3-5.6 [facility] Comment on above: Result Comment: Increased risk for diabe leeann: 5.7 - 6.4 diabetes: >6.4 glycemic control for adults with diabetes: <7.0 Performed By: #### C BC, A1C WT eA #### [place] [address] [place] Basophils Auto (Bld) [#/Vol] Ordered By: Ruth Whittaker on 12-16-2022 Basophils (Bld) [#/Vol] 0.0 10*3/uL 0.0-0.2 [facility] Basophils/100 WBC Auto (Bld) Ordered By: Ruth Whittaker on 12-16-2022 Basophils/100 WBC (Bld) 0.4 % . [facility] Complete Blood Count Auto Di ffon 12-16-2022 Basophils (Bld) [#/Vol] 0.0 10*3/uL Normal 0.0-0.2 [facility] Comment on above: Result Comment: PERFORMED BY: [address] [place] [address] PATHOLOGIST [employer]ING [employer] LE[employer] SEYMOUR PLEITEZ M.D. Performed By: #### C BC, A1C WTH eA #### [facility] [address] [place], [place] [id number] [facility] Basophils/100 WBC (Bld) 0.4 % Normal . [facility] Comment on above: Performed By: #### CBC, A1C WTH eA #### [facility] [address] [place] [address] [place] Eosinophils (Bld) [#/Vol] 0.1 10*3/uL Normal 0.0-0.45 [facility] Comment on above: Performed By: #### CBC, A1C WTH eA #### [facility] [address] [place] [id number] [place] Eosinophils/100 WBC (Bld) 0.7 % Normal . [facility] Comment on above: Performed By: #### CBC, A1C WT eA #### [facility] [address] Erythrocyte distribution width (RBC) [Ratio] 13.4 % Normal 11.9-15.3 [facility] Comment on above: Performed By: #### CBC, A1C WT eA #### [address] Hematocrit (Bld) [Volume fraction] 41.1 % Normal 34.0-46.4 [facility] Comment on above: Performed By: #### CBC, A1C WT eA #### [place] [address] [place] Hemoglobin (Bld) [Mass/Vol] 13.7 g/dL Normal 11.8-15.4 [facility] Comment on above: Performed By: #### CBC, A1C WT eA #### [place] [address] [place] Lymphocytes (Bld) [#/Vol] 4.6 10*3/uL Normal 1.00-4.8 [facility] Comment on above: Performed By: #### CBC, A1C WT eA #### [place] [address] [place] Lymphocytes/100 WBC (Bld) 46.8 % Normal . [facility] Comment on above: Performed By: #### CBC, A1C WTH eA #### [facility] [address] [place] [address] [place] MCH (RBC) [Entitic mass] 28.7 pg Normal 24.7-34.3 [facility] Comment on above: Performed By: #### CBC, A1C WT eA #### [facility] [address] MCV (RBC) [Entitic vol] 85.9 fL Normal 80-100 [facility] Comment on above: Performed By: #### CBC, A1C WT eA #### [facility] [address] Mean Corpuscular HGB Conc 33.4 g/dL Normal 32.0-35.0 [facility] Comment on above: Performed By: #### CBC, A1C [facility] eA #### [facility] [address] [place] [address] [place] Monocytes (Bld) [#/Vol] 0.7 10*3/uL Normal 0.0-0.8 [facility] Comment on above: Performed By: #### CBC, A1C WT eA #### [facility] [address] [place] [address] [place] Monocytes/100 WBC (Bld) 6.8 % Normal . [facility] Comment on above: Performed By: #### CBC, A1C [facility] eA #### [facility] [address] [place] [address] [place] Neutrophils (Bld) [#/Vol] 4.5 10*3/uL Normal 1.8-7.7 [facility] Comment on above: Performed By: #### CBC, A1C WT eA #### [facility] [address] [place] [address] [place] Neutrophils/100 WBC (Bld) 45.3 % Normal . [facility] Comment on above: Performed By: #### CBC, A1C WT eA #### [facility] [address] [place] [address] [place] NRBC% 0.1 /100{WBC} Normal 0-0.5 [facility] Comment on above: Performed By: #### CBC, A1C WT eA #### [facility] [address] Platelet mean volume (Bld) [Entitic vol] 7.3 fL Normal 6.3-10.7 [facility] Comment on above: Performed By: #### CBC, A1C [facility] eA #### [facility] [address] Platelets (Bld) [#/Vol] 344 10*3/uL Normal 150-450 [facility] Comment on above: Performed By: #### CBC, A1C [facility] eA #### [facility] [address] RBC (Bld) [#/Vol] 4.79 10*6/uL Normal 3.60-5.00 [facility] Comment on above: Performed By: #### CBC, A1C [facility] eA #### [facility] [address] WBC (Bld) [#/Vol] 9.8 10*3/uL Normal 3.8-11.6 [facility] Comment on above: Performed By: #### CBC, A1C [facility] eA #### [facility] [address] Eosinophils Auto (Bld) [#/Vo l]Ordered By: Ruth Whittaker on 12-16-2022 Eosinophils (Bld) [#/Vol] 0.1 10*3/uL 0.0-0.45 [facility] Eosinophils/100 WBC Auto (Bl d)Ordered By: Ruth Whittaker on 12-16-2022 Eosinophils/100 WBC (Bld) 0.7 % . [facility] Erythrocyte distribution wid th Auto (RBC) [Ratio]Ordered By: Ruth Whittaker on 12-16-2022 Erythrocyte distribution width (RBC) [Ratio] 13.4 % 11.9-15.3 [facility] Hematocrit Auto (Bld) [Volum e fraction]Ordered By: Ruth Whittaker on 12-16-2022 Hematocrit (Bld) [Volume fraction] 41.1 % 34.0-46.4 [facility] Hemoglobin [Mass/volume] in BloodOrdered By: Ruth Whittaker on 12-16-2022 Hemoglobin (Bld) [Mass/Vol] 13.7 g/dL 11.8-15.4 [facility] Leukocytes [#/volume] correc brisa for nucleated erythrocytes in Blood by Automated counOrdered By: Ruth Whittaker on 12-16-2022 WBC corrected for nucl RBC Auto (Bld) [#/Vol] 9.8 10*3/uL 3.8-11.6 [facility] Lymphocytes Auto (Bld) [#/Vo l]Ordered By: Ruth Whittaker on 12-16-2022 Lymphocytes (Bld) [#/Vol] 4.6 10*3/uL 1.00-4.8 [facility] Lymphocytes/100 WBC Auto (Bl d)Ordered By: Ruth Whittaker on 12-16-2022 Lymphocytes/100 WBC (Bld) 46.8 % . [facility] MCH Auto (RBC) [Entitic mass ]Ordered By: Ruth Whittaker on 12-16-2022 MCH (RBC) [Entitic mass] 28.7 pg 24.7-34.3 [facility] MCHC Auto (RBC) [Mass/Vol]Or dered By: Ruth Whittaker on 12-16-2022 MCHC (RBC) [Mass/Vol] 33.4 g/dL 32.0-35.0 [facility] MCV Auto (RBC) [Entitic vol] Ordered By: Ruth Whittaker on 12-16-2022 MCV (RBC) [Entitic vol] 85.9 fL 80-100 [facility] Monocytes Auto (Bld) [#/Vol] Ordered By: Ruth Whittaker on 12-16-2022 Monocytes (Bld) [#/Vol] 0.7 10*3/uL 0.0-0.8 [facility] Monocytes/100 WBC Auto (Bld) Ordered By: Ruth Whittaker on 12-16-2022 Monocytes/100 WBC (Bld) 6.8 % . [facility] Neutrophils Auto (Bld) [#/Vo l]Ordered By: Ruth Whittaker on 12-16-2022 Neutrophils (Bld) [#/Vol] 4.5 10*3/uL 1.8-7.7 [facility] Neutrophils/100 WBC Auto (Bl d)Ordered By: Ruth Whittaker on 12-16-2022 Neutrophils/100 WBC (Bld) 45.3 % . [facility] Nucleated erythrocytes [Pres ence] in Blood by Automated countOrdered By: Ruth Whittaker on 12-16-2022 Nucleated RBC Auto Ql (Bld) 0.1 /100{WBC} 0-0.5 [facility] Platelet mean volume Auto (B ld) [Entitic vol]Ordered By: Ruth Whittaker on 12-16-2022 Platelet mean volume (Bld) [Entitic vol] 7.3 fL 6.3-10.7 [facility] Platelets Auto (Bld) [#/Vol] Ordered By: Ruth Whittaker on 12-16-2022 Platelets (Bld) [#/Vol] 344 10*3/uL 150-450 [facility] RBC Auto (Bld) [#/Vol]Ordere d By: Ruth Whittaker on 12-16-2022 RBC (Bld) [#/Vol] 4.79 10*6/uL 3.60-5.00 [facility] WBC Auto (Bld) [#/Vol]Ordere d By: Ruth Whittaker on 12-16-2022 WBC (Bld) [#/Vol] 9.8 10*3/uL 3.8-11.6 [facility] Family Medicine Office/Clini c Noteon 10-21-2022 Family Medicine Office/Clinic Note Chief Complaint med refill HPI Staff Pt is here today to discuss getting a referral for a counsilor for her depression/anxiety. She would also like to have labs completed to check her iron and a1c levels. Pt has been feeling very tired lately and has a family hx of DM. Also is needing her fu for her ADHD. Takes Adderall 30mg qAM. Pt states she has not taken her new rx for adderall so the amphetamines will not show up in her system, she has not taken it in awhile due to person troubles with her living situation. [place]ARRS reviewed: 10/16/2022 Medication Agreement updated: 10/16/2022 Urine Drug Screen done: Yes Pill Count Done: No PHQ 9 score - 4 CINDY 7 score - 2 History of Present Illness Regina Franks presents today for a follow-up evaluation of anxiety and depression. Patient has been unable to take her prescription due to moving homes. Patient states her depression is severe, she states her anxiety is somewhat controlled. She states she does find herself shutting down. Patient states she feels stuck in life. She does not want to return back to medication at this time. She would like to go to counseling. Patient states the previous place she was referred to did not accept her insurance. Review of Systems PHQ Score Initial Depression Screen Score: 1 Constitutional: No fever, no chills, no sweats, no fatigue Skin: No discoloration, no rash, no lesions, no cyanosis. ENMT: No ear pain, no sore throat, no congestion, no vision change. Respiratory: No shortness of breath, no cough, no orthopnea, no wheezing. Cardiovascular: No chest pain, no palpitations, no edema. Gastrointestinal: No nausea, no vomiting, no diarrhea, no constipation no GI bleeding. Genitourinary: No dysuria, no hematuria, no discharge, no pain. Musculoskeletal: No back pain, no trauma, no change in ROM, no stiffness Neurologic: No headache, no dizziness, no numbness, no weakness. Psychiatric: No sleeping problems, no irritability, +mood swings/depression. +anxiety +adhd Heme/Lymph: No bleeding tendency, no bruising tendency, no petechiae, no swelling Allergy/Immunologic: No seasonal allergies, no food allergies, no recurrent infections, no impaired immunity. Physical Exam Vitals & Measurements T: 36.9 ?C(Temporal Artery) HR: 80(Peripheral) BP: 140/88 SpO2: 92% HT: 64 in HT: 163 cm WT: 112.8 kg WT: 248.16 lb BMI: 42.46 General: Well-developed, well nourished, patient here in no acute distress Head: Normocephalic/atrauma tic Eyes: PERRLA and EOM intact. Conjunctivae and sclerae normal. No drainage. Ears: No deformity or lesions to external ears. Canals and TMs appear normal bilaterally. TMs intact with normal light reflex, not inflamed and without effusions. Hearing grossly normal to conversational speech Nose: No deformity, discharge, inflammation or lesions Mouth: Mucous membranes moist. Normal oropharynx and posterior pharynx without lesions, edema, erythema, or exudates. Tongue normal Neck: Neck supple. No masses or palpable cervical nodes. Trachea midline. Thyroid without nodules, masses, tenderness, or enlargement Lungs: Normal respiratory effort, no distress. Lungs clear to auscultation anteriorly and posteriorly Cardio: Regular rate and rhythm, normal S1 and S2, no murmurs or rubs. Skin: No rashes, ulcerations, or suspicious lesion Lymph Nodes: No cervical adenopathy, nodes normal Mental Status: Alert and oriented x3, normal mood and affect. Normal conversation and eye contact Assessment/Plan 1. ADHD (F90.9: Attention-deficit hyperactivity disorder, unspecified type) Adderall as prescribed. [place]ARRS reviewed. Taking as prescribed, denies adverse SE. 2. Depression (F32.A: Depression, unspecified) Referral to counseling, does not wish to try any further medication at this time. 3. Anxiety (F41.9: Anxiety disorder, unspecified) I will refer the patient to a counselor. 4. Bleeding disorder (D69.9: Hemorrhagic condition, unspecified) Discussed following up with her MARRIAGE PERFORMER, no recent s/s of bleeding tendency, she is curious about control options. BMI 40.0-44.9, adult (Z68.41: Body mass index [BMI] 40.0-44.9, adult) Medication management (Z79.899: Other usp (current) drug therapy) see above #1 Non-tobacco user (Z78.9: Other specified health status) ATTESTATION: Documentation services were performed after patient or guardian consented to allow [employer] to record this visit. TEX home mortgage disclosure act specialist and provider reviewed before signing. TEX: Mari Crook. Follow-up No qualifying data available Problem List/Past Medical History Ongoing ADHD Anxiety Back pain Back spasm Bleeding disorder Depression Smoker Historical No qualifying data Procedure/Surgical History None. Medications Adderall 30 mg oral tablet, 30 mg= 1 tab(s), Oral, qAM Depo-Provera 400 mg/mL intramuscular suspension, 400 mg= 1 mL, IntraMuscular, q7day mirilax, 17 gm daily, Oral, Daily, 2 refills Al (more content not included)... Normal [facility] Comment on above: Result Comment: Electronically Signed By : Ruth Whittaker NP\.br\Date and Time Signed: 10/21/22 11:30 EST\.br\Electronically Co-Signed By: MARI CROOK\.br\Date and Time Co-Signed: 10/16/22 12:35 EST Physician Referralon 023 Physician Referral [id number] .00CD:127 Normal [facility] Ambulatory Visit Summaryon 0 10-16-2022 Ambulatory Visit Summary SANDRA FRANKS :2000 Visit Date:10/16/2022 Ambulatory Visit Instructions Your Diagnosis ADHD Depression Anxiety Bleeding disorder BMI 40.0-44.9, adult Medication management Non-tobacco user Your Care Team Attending Physician - Ruth Whittaker NP Primary Care Physician - Ruth Whittaker NP This Is Your Medications List Non-Formulary Medication (mirilax) amphetamine-dextroamp hetamine (Adderall 30 mg oral tablet) medroxyPROGESTERone (Depo-Provera 400 mg/mL intramuscular suspension) Procedures Performed None. Discharge Vitals Temperature (Temporal Artery) 36.9 ?C Heart Rate (Peripheral) 80 Blood Pressure 140/88 Height 163 cm Height 64 in Weight 112.8 kg Weight 248.16 lb BMI 42.46 What to do next Someone Will Contact You Regarding These Appointments [facility] External Ambulatory Referral, Counseling, female counselor - [facility] if possible/or [facility]?, 10/16/22 10:48:00 EST, Depression Normal ADHD\.br\ Medications\.br\ What How Much When Why Instructions\.br\ Unchanged amphetamine-dextroamp hetamine (Adderall 30 mg oral tablet) 1 Tablets By Mouth Once a day (in the morning) ADHD\.br\ Unchanged medroxyPROGESTERone (Depo-Provera 400 mg/ mL intramuscular suspension) 1 Milliliter Intramuscular Every 7 days\.br\ Unchanged Non-Formulary Medication (mirilax) 17 gm daily By Mouth Every day\.br\ Allergies\.br\ No Known Allergies\.br\ Problems\.br\ Ongoing - Any problem that you are currently receiving treatment for.\.br\ ADHD\.br\ Anxiety\.br\ Back pain\.br\ Back spasm\.br\ Bleeding disorder\.br\ Depression\.br\ Smoker\.br\ \.br\ [facility] Medication Consenton 023 Medication Consent [id number] .00CD:127 Normal [facility] [place] Family Medicine Office/Clini c Noteon 06-17-2022 Family Medicine Office/Clinic Note Chief Complaint back pain HPI Staff PT is here today c/o back pain. States she has had this for a many years but recently is getting worse. States its located from her neck radiating all way down. Does get occasional spasms. Sometimes pain radiates down R leg causing paresthesia. 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 Has tried taking tyenol to help and does not get any relief. History of Present Illness Sandra presents today for an evaluation of back pain. The patient reports that she has been experiencing back pain. She states that the work that she has done has made it worse over time. 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 She states that she has currently been working with disabled people. She notes that they are supposed to be using the lift, but they would put her by herself. She pulled her back and exacerbated her chronic pain. She notes that she has not worked since then. She states that she has tried stretching, but the pain has progressively gotten worse over time. She notes that the pain starts in her upper back and then shoots down her leg. She states that it feels like a spasm. She notes that when it happens, she can not move. She states that she has never taken muscle relaxers. She did not want to take the daily antidepressant. She would like counseling as she suffers from some PTSD related to her childhood. Review of Systems ROS - Clinical Support GI Symptoms: None Cardiopulmonary Symptoms: None General Symptoms: Other: back pain Genitourinary Symptoms: None Neuromuscular Symptoms: None Pain Symptoms: No Skin Symptoms: None PHQ Score Initial Depression Screen Score: 0 ROS - Provider Constitutional: no fever, no chills, no sweats, no fatigue Skin: no discoloration, no rash, no lesions, no cyanosis. ENMT: no ear pain, no sore throat, no congestion, novision change. Respiratory: no shortness of breath, no cough, no orthopnea, no wheezing. Cardiovascular: no chest pain, no palpitations, no edema. Gastrointestinal: no nausea, no vomiting, no diarrhea, no constipation no GI bleeding. Genitourinary: no dysuria, no hematuria, no discharge, no pain. Musculoskeletal: yes back pain, no trauma no change in ROM, no stiffness Neurologic: no headache, no dizziness, no numbness, no weakness. Psychiatric: no sleeping problems, no irritability, yes mood swings/depression. Heme/Lymph: no bleeding tendency, no bruising tendency, no petechiae, no swelling Allergy/Immunologic: no seasonal allergies, no food allergies, no recurrent infections, no impaired immunity. Physical Exam Vitals & Measurements HR: 111(Peripheral) BP: 144/92 SpO2: 98% HT: 64 in HT: 163 cm WT: 121 kg WT: 266.2 lb BMI: 45.54 General: Well developed, well nourished, patient here in no acute distress Head: Normocephalic/atrauma tic Eyes: PERRLA and EOM intact. Conjunctivae and sclerae normal. No drainage. Ears: No deformity or lesions to external ears. Canals and TMs appear normal bilaterally. TMs intact with normal light reflex, not inflamed and without effusions. Hearing grossly normal to conversational speech Nose: No deformity, discharge, inflammation or lesions Mouth: Mucous membranes moist. Normal oropharynx and posterior pharynx without lesions, edema, erythema or exudates. Tongue normal Neck: Neck supple. No masses or palpable cervical nodes. Trachea midline. Thyroid without nodules, masses, tenderness or enlargement Lungs: Normal respiratory effort, no distress. Lungs clear to auscultation anteriorly and posteriorly Cardio: Regular rate and rhythm, normal S1 and S2, no murmurs or rubs. Pulses: Normal capillary refill Musculoskeletal: No deformity or scoliosis noted. Joints normal. No erythema, edema, effusion or ecchymosis. neck stiffness, no point tenderness, Extremity: No clubbing, cyanosis, edema or deformity. Normal ROM in both upper and lower extremities bilaterally Neurologic: Grossly normal Skin: No rashes, ulcerations or suspicious lesion Lymph Nodes: No cervical adenopathy, nodes normal Mental Status: Alert and oriented x3, normal mood and affect. Normal conversation and eye contact Assessment/Plan 1. Back pain (M54.9: Dorsalgia, unspecified) I will prescribe a Prednisone taper to help with the inflammation in her back. I will also prescribe Baclofen to be taken at night as needed for muscle spasms. I will also refill her Adderall and MiraLax. 2. Back spasm, (M62.830: Muscle spasm of back)Back spasm I will also prescribe Baclofen to be taken at night as needed for muscle spasms. 3. ADHD (F90.9: Attention-deficit hyperactivity disorder, unspecified type) I will prescribe a Prednisone taper to help with the inflammation in her back. I will also prescribe Baclofen to be taken at night as needed for muscle spasms. I will also refill her Adderall and MiraLax. 4. Depression, (F32. (more content not included)... Normal [facility] [place] Comment on above: Result Comment: Electronically Signed By : Ruth Whittaker NP\.br\Date and Time Signed: 06/17/22 09:14 EDT\.br\Electronically Co-Signed By: Amy Combs\.br\Date and Time Co-Signed: 06/12/22 12:52 EDT Physician Referralon 022 Physician Referral [id number]# 1.00CD:127 Normal [facility] Coding Summaryon 01-16-2021 Coding Summary [employer] 64 DozqwdbqYOt6mDr+PGhlY WQ+LR0ZSVMdZ25nsGBbsU 1DG5kNKI9VSHYYZESGIO0 YZK0zjFS4UFbfZ0ArjhAp YmbzwKBoHQ55KHu7OLI8b GvxAQtklB4smAFyC0d6Lo VoQH01eJ79IGgjOZMfZyB 3LjZpbjsgbWFy H1mlKsUgeQKyVpv+PHRhY mxlIHdpZHRoPScxMDAlJy QyfJdqOJ2gAw8qMAClILB vbGxhcHNlOiBj x8xcIDQbZCfyES9mjUahF 2SygIA1JBUmu6f0Gj37gG I+HTSxHDH4hEqyBLrup36 6YqSmf9swTJG7 iSVvQKtfJRK5P81iq0R2M GNcZCNrZHX1jDR3aH9oxK rcbnwbY9EgyXFeUxQ0ROD 1pHPdiV0voUnr arfxaQ1xBde+M33LRU3GG MGOSF8XSvs8N2GaFwdptM I+NW29CWPfFY56rCEaeVA yc6gmkMa4EjNb SVKvBZB7sOrdXUigg0BmX YLjW83huUSkc8R7PQBahI voaHCyWrGjyJF8xN7fIDo hjysdw4epfkte Itlhh3jetf98gS96U39qT EkgHMSjKLO2KDGfVYVriW pocx2rfS5jZb5+MQmhs9d gx3enhPg0CmHs MMIixtGodSvnAME8n8XiR m05Y2HqjWbri9MyEbu2ur 67rVDjx6M6eIW6SGfxWST zpR5qCNeqYsM6 TAXbUiMuwK99mTNxHNlzY j0gjEvuuBvlAF1qZMPijz eiDSItfP8yBKKjxKMvxTp dVG6zOFIbsdmv k461FwItIFR9XPUiaEIjM 8InwX8wGeCrZNPwIHLkU4 GllZVoKBbaJ804DYnrUhK 5XOZocmZfZ3Ex AYJyaCbxIeG8h7Q5Nl6Yf 2YmhdteOWW2ERthVQT8So P8KxZrAaA6V3UvLgw0OTX diUuhSI8vQ6St DTLuaknvlphoqEM5RDLhX HCasE20uHAxYQacKn8cc8 H5c010JBSbWLVwuZ62Iy2 udDogMTBwdCBU vF2lsmnyl7fvgfsmZuRzQ NPzTHa0LFh6MLEdlZsjEa LaOUB7OkA7HUZ4kFXmmO0 evXfpesholJ2r Oyc+X05lrV9pYKG5BFL6f xasCYUqbvMaYP71YV95O7 RyPjwvdGFibGU+PGRpdiB btGiyDP2nYeZt v1led9MaGOgkR1OwKPSyU TgrBnn9AYJeEDS9jOV6eB 8pPMNrSIobl0S2pWG1F9T gbeMnwr5dz9lr GVPaIUtiH27ajONzh9D2G SBevXV5BODqcIjcRuGqbY 93Oyc+RPZrqTlta6FlNam ge3bwk7gzsNm3 LiCoXDWvltVqxNqiGJH6o 4BdAt58T53nAXbuTPQgKK AcGAUsCMFxtAufwr8qsY1 wIi8+PGNvbCB3 dQA8cH6lBVUqJpI3YUboM 221AyIjcHZjRqlqi9ofh5 edfYz8NyJbLAOprvVklZs cJOY5b0MpIm29 S81aVOsfYFIxCECzVATiA TYrvCvjzh2yjI3nJx5+PC 3ug1olca56eV65hRQ+PHR kWXV3nXyaBOzn BREnqI2wGLsuYnV1JKZwK fHxiE99rBIhMRghFd5xhK irrRuqMM4lNPDncwbgo71 1SjVpn6dnBXGv hRGgFVeeVEJ3I47nt5M9A EYxQBQzOXJ3eSJ7wS5klJ lnbjogbGVmdDsgdmVydGl [id number] IHRvcDsnPlBhdGllbnQgT bRzPYd8I3BcPyh0CANjeQ ctYM0rmXZyPAolEa1xhVx jkIixOA0oXWHv rhbau311HcEtu9jcIXClv JZxAWesQZN9L37rv1I5NL JiEOLtRPB9oZW1mY6ckZw nbjogbGVmdDsg zkYzoVclQEkgESjwY850R HRvcDsnPkJpcnRoIERhdG Q0XZ62HX70cZVkr1Z6oNB 6A2TxXHAwuetd oacrhUT3LHKgCFBuuR09Z l8rlXklZw2cVYCbCVA2ZM UsySZqA6PocA9fIhGvKXW hVCRiC4IkkNOr UAxcL964TDkvGmN0WSXsw sUnE4QrFZGbuSbkXlN8r4 R4Mv9DB2C1WQ14IN84iDP qv6K8uQH0M7Qm LQUglccmrnzxzPD5NIIjR NVfmK16Ev4zdXzlXw9pBS UkUPP4UDFktNAmN7JmcC1 yOiAjMDAwMDAw K7JbnNTuUStmW748LOgmW gF8OUPhtrQvJ1XyNSIyyR evMcX6j3I4Gj3DQVe7RW1 9XB27pRFwf1C8 lET1B0UrXMOtfiiaeqssv TD9OIWsJEVgxV01Fv5rnO omNz3hGMKzFLF5ONEvxLF yO7VkuR7sYqOv KAUiXJSiY8YazHVmGOclU 174IEywPwI8TNAbqkRdI9 YkHHNtlRfmAcG0h3C0Ee5 YFEFoTU70NMA4 fKX9AJ25XO70X9FdMzbtl GFibGU+PHRhYmxlIHdpZH RoPScxMDAlJyBzdHlsZT0 bWb5rCFVjCIJu pAdrtGNtYjFkb9ejIJAkU BimEZ6ldWmjH9ApfBL7ZH Zou6y4Ro11W88lO5LawWV +KJArrMY2cKA4 fH9aDxAmSrG8PUhqX946F sZucOPmXdagh6ahg8pyjZ d7DfE2ICLoxhFyaSnbCHS 7s1JeHx14T52n IHdpZHRoPSIxNSUiIHZhb Ihtdt7raJ7sOh1+PGNvbC D3lQR0vO3iReLqMiA9ISs vN942MmUqsGTw Iukad1onw5rvnYv3SdOlT TEglyDgvAlmNPW9z9RqIp 79R6JeiFehy7YvOuj3ae4 4yHZpt5T2xMR4 U2DnQVWjmaekbISiqCnvK L4eCJWknuqvRFFskS2dII CsA9h0GjRxLhO8ELpkI1F cbhX0SZAtgAPt XZmpGIB4N71cz5H6IQHzZ VKgFMT6mWB7cH5euYquuh ogbGVmdDsgdmVydGljYWw hFQbsN374TXNc xBfxXIOrpK6zHFZeyPOdz WqgGI5aXMJbxcutOjRTHU 5PXSCOQ0rZQxcTFZjziVY +VUXaZMM9lPpv LGlnFMApfS0iYRRkN8b4P xEdDyV6PTsnA6WoYLUbpv xbIx10hX0vJaLpTlU3LUt lQ4IjxuU0LZJi eDXeHMyyNCU6D24ip4P9G ILaMFYfQBD5mNA0mM0coW lnbjogbGVmdDsgdmVydGl yMElrCAgrA634 HZFeeQvgFsMrEiY3IjHyG DC7S1EzHbd4JWRnkNldES 3gqYPvTLxmOl4fbFvktGs gXK5pGWPvavvj PBRokL3jVOKgrRWdvWgpZ P0xQNThrodjl667IkGjND I9XBJxrSMhH1NxvZ2eLuM tJLXxRJCfJ4Eg lZDtRLekS805YGllLdO8X EHxjrNdI1FhAVKnhDadJf X4l5I3De2aZLAMSXXysrv vdGQ+PHRkIHN0 wQypEEniBWSaoC0cQOLgD 4q6ZfRvHyV4FEwpW3DvWL NkbbxbPl73cO9bIhCgQrP 7ZCyvO0HecvF2 ZMXagUCpDImeFGR2Y29gj 0P7QKTtVCDyROF4hQC6zT 1hbGlnbjogbGVmdDsgdmV ydGljYWwtYWxp Y707DRBqgHfmOpTAYALZA TwvdGQ+YWSvADF2jOihGU dtOAFgcI3jSRWhI0l2TjR rQwR0OQmqH3Tw UTWjyffjPj37rI7iDjSvT mW5UVooY4PlbeD5JKRsuL LpQLmiOQS3U09vb3R0VUH cTSIsWTH9nLL0 aO2beFlswqzorWQqhVajg rHuaBdhGPlnWOwmW474JH WqbDqxKs3PGU28QW74A8L yPjwvdGFibGU+ PHRhYmxlIHdpZHRoPScxM LYaQaUjsLgiMC5oPk0aBV McTBQhgCtrySYhCgHvd4x kRLMtAZlvFQ3g wUydI0AcuEN4UHDuk9n9D i59K64bC6LvqBQ+PGNvbC F7bAE3kM4pDbGqHoK2LDc qC133WsNpxMUu Zkpwu7nao7yeeEq1JsDwF TEakdByiUtjZRO9s0CgNn 72M38hPNzdPXNnPHCjEJN tBTNdmTimjc8j nG5eWx7+BJOlhYG5gBH1x J0uGdUqJpK2WIkaB785Fs PvnTXeYgpiD76eZ8FoePS +YBGlBnn4SPCs oTyhMB4twDJaMDxtCw1uG AP2DjOcVvOcYHrsP2FpGR FqrvqdoujzqZO4ZJEyOMJ tuM44Jb8udSxn Vg3iQFZtXUS2XPHtaKLrG 9FmrO8iSyMiDSNvXXSiN5 JjoNKyZNsfO023LVtuDnF 6RSWvjnQwX7Iz TPWawGdqScJ7j7F8Os6Wk TehzYUeNB4sArDnMYq2C5 SzCda7RTBakXeaAH7vkUZ tTGbzBh0zhIti bQnaSP8jQDTuhcjxb963T cNvq7ssUEHnmCWxOOvxTM Q8O18sl5N0ZEEuTSOcEGF 8iFP3hA8wjEiu bjogbGVmdDsgdmVydGljY DslPNhmA967OKWhpEhpAa MZXxn3K1AkQye0EWSokJw mCL8dfYHhZEpl Xz9syNyjaKdsWX7bRZAhg vkwe606QxWyz5rjNSQxfQ ApARnjZCP1R05zm7B5OWU mEEVdVJV5rYT7 vD4nxUvmahgaqPGtgWbqa sAtjHjvXWgmGOhrM324HA AjfFltGl2CJje9X8XeHhi 4EJMzhEgtET9b gVJxUDawEv7iiFvfxVfqS B7aBNRtizwbf934XpCaw2 jlIUErkKWaRYnbSBT4T96 np7T1WVYoTHCx DIM8aMA7oU0ueIzrxayxg GVmdDsgdmVydGljYWwtYW pkP191DYPtdYqiEqMsjXR yOjwvdGQ+PC90 qp56R5SrRbbpLtq7IZZsT EJ2sZH9cE3nWJVxREkvi4 A8bOW2J9SxhoEnvr4sw8q qQXHlQAduA48b bGF (more content not included)... [facility] Coding Summary HTMLBase 64 SlftjwwfJAf4xYx+PGhlY WQ+GG8RHQQzY32bkJOiiA 3XI3kRJP1PSIRPKFHMVY0 NMJ8msLG8HLlfX1CesbIm NtdotYWyWV54OFn9YUV3u VpvORgtkI0tiBUsV8n8Ha GoMA49hV09MAurREScKlJ 3LjZpbjsgbWFy A6qyAeSyfMZkKbk+PHRhY mxlIHdpZHRoPScxMDAlJy KrjCbvOL4uTq6eVYJfUVN vbGxhcHNlOiBj x1hhOYTxHHftOF5tkWyaI 3SmbLF1KOGgm2o1Qs11dE I+YKUuEJN3qYncLYmis09 3TtRyk1uaDEP9 aYYfMUenCZT1B80nj7R5Q ZZvJCLsSEQ7hNZ2jN9svW awwcnmO7WfyYPfCwD7IYZ 5kGHgsP1xdTai vapqbD8hWmm+I85KDU8DQ DKBRV9XBne7Q5VsQsaagI I+VL34EVAuLE33wXZdxTK jz8pisSs3CbZb LRRdWKF5nMbjUYjka5LnY NKeK60guQNdq8V4AENpxY rymXSbXxDekCZ0vO8sWUv svwdvf6tubsbp Onytc9mdcp20aN45C71cT VjoCTNtAPP1YTSdCFRizT bqpi3fmL0uAr0+WFlvw1e nk0ksiEs7LwBr QEXxxaOohVflAHM3z2QxI f02Z5LhiEvlb4FtLxr3gc 64hDGdf1R8sKB4OVkzNBV lvD0mNDosFlP4 GBTnNrFqwR63uAQkMBymW o2rsYweqGagTK4vPCTlws bvQDYvcL7hFWSyhREewEr kBI4vXQNljxnk l581BnVbJSN6DQXlqDVrW 7EfsN8aLvYeARWoLPXwX3 CtnSJsSDfdZ930EUtgXgC 6YMKvzhRtU1Ef OHAkzGlfGyD8e9S9Pu9Dn 6ZrehqpFCY8BLwyLFA3Ln M4CkMpLpA4U2AwTku6QBT qwFeiVT3tH7Je EBRryjepenkfmRR9PGTqE DCnfE45gVLoWGanTn4uu7 O0s578NLWlQJHawG04Hz1 udDogMTBwdCBU mF6okosmd9mkhnhtZsGnC VZtYMa4OZl9RACuhKxeVd QxWFK5JxW1IUB9yROcxG3 leCrhdlrifK2f Oyc+P31npM2eRDM0ERF4g xvmDAPmsnOiYE12HI51P6 RyPjwvdGFibGU+PGRpdiB dsWdwEM6oHaPu m2ihl0XzKIksO7QwGUHfP OisHcu3SCCjTPT1yMM8zH 0fLAMkFRefr7J9uWS9B5T prnBjzz3tv6gm GFPwWFxiZ14ndDTgp4I3J YZfwXR8PSXrfTogNpWotX 93Oyc+NHSfcWnmy2XoAir lm8fqk1hupLo8 NgWdKAMqxhNlfHuqPPA4s 4ZkIa46E80sHXbeYZCzFQ LgPJUfMZSafUtnus8olC8 wIi8+PGNvbCB3 nYG7fO0zUWLbAaN0ELfgJ 051GxTjlADkLjblo2ajg9 dqlUx8BpHcMIFtjeGpbYj oDOU3o0BlYi24 X11zWLtwBGFpFADgMBSiD ZViuXqojt2efC6lZc0+PC 1jp7tdip90pU52qIM+PHR wIWX0cBurYZtk NFKonB4eZTvgRdQ0AJRvU bFbqA64qNQuXEtdFd8nmO pcdEulCK2rCEZlsmkhw29 8BwAqb4gqCVFg lYFxDWdxXHF5F62pi9N3Q CIvFLNxWZS3eGP7hH1daB lnbjogbGVmdDsgdmVydGl yKOchUPleJ735 IHRvcDsnPlBhdGllbnQgT cTjXZc6Z4FqCjt3QEGanM jwCN6biCSaQGyjHb0ieSv dcYkzYN0vZWHl htdyu410AkCjo9pqEEOgn RDmDXeqITR7S99zz3F5HI FiRVBdFDZ7eCT6pQ2pjAw nbjogbGVmdDsg cyQfvMgqXLkjZLdnV267X HRvcDsnPkJpcnRoIERhdG K6DD61DY32rCAmx4Q6wIG 8U9TpJPGwwyli qbpybOI9NYXxPBFkoJ85R n2pmOmxFg8yIWWgHWX2RO RyuVJfF9InaB3yVaGjCHH oMLGgT6HdeKMf ZBcgA712ZRynGvG8IKPnu yYpK4FtFROqcXpvRoX5o4 X8Ky7HL9I1YT62SQ28hPZ ec2N5dEL7C7Jl QXRxuobzgwjgzIV8IKPeN EQshQ95Tu2jcUftJk7yNS AkEUZ9BSTnvCRbK8JodY7 yOiAjMDAwMDAw H9PxuCPtMFcnB684PUiqV qK6PBMhvtZlA6LgDKKtrH gmUkU5m1Z3Hz9MWQz0QJ6 5UN36xEEdo2R2 yLK2G6ZwLMYtahtwhxffj BF7XVTdLTPucG08Vw3uxO ibLf2qTPAoCZY4NRWmmPK wR1VdaV7fEjHk UNXdPLKeZ2KkzPFgFRmoK 167YUitLqG1GGKrqgNyN3 LaSZWjiLeuMhP1c8L5Ti9 OKARsTS54VIY5 uTR8KL96DV03R3PoMjjaf GFibGU+PHRhYmxlIHdpZH RoPScxMDAlJyBzdHlsZT0 hYa6jIYHpWETr cCzyqGYuDuCyx1dsFWPjE UhrAX8sxPghN0NgdUR3CU Foh0a3Jc84M39qQ8IteJG +GDXuyYB1pPK3 cG5xYyIdLiT5VNdjA231J qIpgJJnVpmxy5tnw9qslT b2YeS6UWSilkUxuYlhQLJ 8w1WjIn80B22r IHdpZHRoPSIxNSUiIHZhb Pbyxs3xmM7zDa1+PGNvbC X0vXZ1nI8qRfTgMbK8HYp cD431UiPrnJRi Uelya2yke8dldLe8OwVtE NNwaaJztPdyEFL8k5PrAy 62R9WluOjwy1GuEst6ns8 7iLPyn9Q4bNR9 Z6LnYOYlkvsrnGTezUjoO B3qFQBpawplDRKonX5oIB BaV4j9FaOoNrZ6BFlmJ5I hzlW7WUXnfEVv AWagIWD6J05hf6O9CGTzY SQxIGO6eCZ3bZ3ngDwgzp ogbGVmdDsgdmVydGljYWw zXBbcK976NSSa zXuxYUDsrS1tGOJsuDHvi RguSY1nAFJuajfvWfBZOJ 9CDVGMC0hSOjnAUDmywHD +CFKcIJG7rCwq KZdpSLJihR4cSXGrQ6j9I nCzClT9PUpkX0ApWRWolq xxBh42vY0hXfYyZmM7OKz uI7FmfuL2KBOz sUKtCVtsCBA2R95tw1T1G PRiVDTaSEN3hDI8eI9ldT lnbjogbGVmdDsgdmVydGl fYZpwMIcaE662 OVUflDnpBvZiQsD9GmTnX XD5I3RrOdk9WLOkeCoaOH 3ehEKcPCeoRv5pcVicnGw hVZ0sNPPjfzvi BJFanY5pFWOzgBBvtPdxD S6rYNZcwigyd113EiFnIF Z8GSBdhINcM8WwoI1xKzN kNCVmJQQqV4Gk oPQmBJmnH584QZfvWrK3E MUiwtBgA0HeTWWayQtoKc K8m3K4Mv0xYIPIKFGekst vdGQ+PHRkIHN0 fSewRTecYYYdyQ7jKSXiZ 2v0XhRjKdW5BEdtE6ElDK VvmdhkUe16rY5mBbIlQbH 6EFdpS6LditM8 BAWtbOVlLEasEVJ7T49qv 3J4SSSkNWAuCWL5vZX9vY 1hbGlnbjogbGVmdDsgdmV ydGljYWwtYWxp Z953QLBafVxwNcHZNPSGG TwvdGQ+PETcOSS2mTugAE blNULifC0tEBWrK0s9DiZ xLuL6WSzsC0Al XMJvgnmvAa54fA5qHqXwA fQ0JAqiZ4KkodE5TKOwaN JfYRqsVEE3W51sz6U7PRJ iWEKgRPY7kFZ4 iM2vkQnlrzyiqRKznUpnn pKviRctFBauUGjcO529DL TfoGvvXaCyQGIdVW9zwLo vdGQ+PF91tz29 P2BcHsnzKux6DQScAVQ0t TV1gA5vDEUsAJiue0R3oT M1U8UwygVzkg7qh0vvKYZ hZYvvB23vyWZn h6V2USUweFA6TCEcbUgzI cIszW36Cch+PGNvbGdyb3 BkYwyxh1pws1hyvTr6OpE wJSIgdmFsaWdu WJI4x7CdPa87B03fGYchA HRoPSIzMCUiIHZhbGlnbj 5vlJ5qIm0+EDIsgVE1yMT 8wU3tGdFjRkN3 OCyqO740WlAfqHWpSfrrb 8edb4gggDl0ZkEqSJQmer QloDgiULT2s6WeGj59D2G ciCwck8PxNxf5 ix02xIOlt2T4jAB1Z3TpM HDkhyvrtFRdcOeeVW6jRE TafhslBMYneY4iPHJzZ8o 2VfRqKlL7VTzs H0PkwlX3YBVyvRJeLTFfu DOTjH7ghfnlh3lcgphaIa ApQVGtJZz5IZm4OMXnnXf bRlBnCDP4FzO9 TWG8dSWerO1unPljuafwh G9wOyc+PQn1u0gsiBEbEB 7zaSJ1JK56SM68iKAcw2T 5cLD4O4JcTNFj wrarrwxhnGE6GSVqDXYyl B79Yx9qrXqvWf3cSZJtYZ D8FJPabBWwZ6GkaW8sCgC lBNMyENKlN7Ot uULcAImoL827RBncUbW0G HTpvaDyS5GkGLHtvArsNh V6b4K1Jd5AJU75ET05JF8 1jRDry0L3dXS8 N5KiVKNdthjuiaxyzOG9D USjSLXloI25Rl6rcKzoJv 5iCPAjJIH1LLPkdSPvE5N obO6cHmLuVRLq OLSkL3XvlHVaRCwnE901O DulOtH7TQYyzwZzA6YtLH PfdLylOgH9m2M3Ro3GXz5 0EC62YG64nWFx u0D8kPO8F7ZbJWHnciclk rjtpGE1YFPrMWJmvF24Jn 2jjMmwGy2oQVHiEXT8YQZ zxHXpV5TmtN5u SySuIJQkCMAcL2GkjHGoI PjbI804FObpUlY0SPFdju ZkB9IcTHZbzKfqJeI2k9V 1Wx6WWDoprep8 T8VeEqtsbRN+UX39XSPzB E67jDRqpIOdf3oxpUn8Jc FbJFIiEZQ8uMwgFUnbl3B wOWZhR63uqOWb c2U (more content not included)... [facility] Consent Formson 01-13-2021 Consent Forms [id number] Normal [facility] C Urineon 01-12-2021 C Urine Urine Culture ordere d as a result of parameters set on specific urine dip and urine microsopic results. Mixed skin, or urogenital olivia. Clinically insignificant Normal [facility] Comment on above: Performed By: #### [id number], [id number], 6724991, 62483896, 3326910, [id number], 2086089, 3155889, [id number] #### [facility] (DEFAULT) [address] [place] [address] .Auto Diff 1on 01-10-2021 Auto Red [place]ow % 8 % Normal 12 [facility] Comment on above: Performed By: #### [id number], [id number], 4052918, 83755876, 9247555, 1885255036, 3335975, 0588516, [id number] #### [facility] (DEFAULT) [address] [place] [address] Baso Abs# 0.0 x10 Normal 0.0-0.2 [facility] Comment on above: Performed By: #### [id number], [id number], 2738262, 11661353, 2613909, [id number], 0790693, 1573609, [id number] #### [facility] (DEFAULT) [address] [place] [address] Basophils/100 WBC (Bld) 0.4 % Normal 0.2-2.0 [facility] Comment on above: Performed By: #### [id number], [id number], 0806865, 13738612, 1621126, 5957918993, 3417729, 5185158, [id number] #### [facility] (DEFAULT) [address] [place] [address] Eos Abs# 0.1 x10 Normal 0.0-0.4 [facility] Comment on above: Performed By: #### [id number], [id number], 9070508, 35496816, 3329687, 0824256587, 4412878, 6173644, [id number] #### [facility] (DEFAULT) [address] [place] [address]5947 Eosinophils/100 WBC (Bld) 1.2 % Normal 0.9-4.0 [facility] Comment on above: Performed By: #### [id number], [id number], 0003431, 25621551, 7519577, 5659441133, 9160821, 3834612, [id number] #### [facility] (DEFAULT) [address] [place] [address]39 Lymph Abs# 2.7 x10 Normal 1.3-2.9 [facility] Comment on above: Performed By: #### [id number], [id number], 1857186, 34666659, 6641940, 7224564993, 1237494, 3811252, [id number] #### [facility] (DEFAULT) [address] [place] [address] 21566 Lymphocytes/100 WBC (Bld) 29 % Normal 14-48 [facility] Comment on above: Performed By: #### [id number], [id number], 9434942, 48371750, 7476440, 7123686634, 0188942, 8743276, [id number] #### [facility] (DEFAULT) [address] [place] [address]404 Red [place]ow Abs# 0.8 x10 Normal 0.0-0.8 [facility] Comment on above: Performed By: #### [id number], [id number], 8669077, 93453130, 9593134, 6075320491, 0683318, 8320164, [id number] #### [facility] (DEFAULT) [address] [place] [address] 98598 Neut Abs# 5.6 x10 Normal 1.5-9.2 [facility] Comment on above: Performed By: #### [id number], [id number], 6287812, 28537108, 5844750, 3008351380, 0992510, 0912360, [id number] #### [facility] (DEFAULT) [address] [place] [address] 74300 Neutrophils/100 WBC (Bld) 61 % Normal 44-88 [facility] Comment on above: Performed By: #### [id number], [id number], 3633041, 54197763, 0960112, 8344065086, 6408286, 5250686, [id number] #### [facility] (DEFAULT) [address] [place] [address] CBC w/ Auto Diffon 1 Erythrocyte distribution width (RBC) [Ratio] 16.1 % High 11.5-15.0 [facility] Comment on above: Performed By: #### [id number], [id number], 6272300, 01805492, 5792253, 2869760272, 7957916, 5914418, [id number] #### [facility] (DEFAULT) [address] [place] [address] Hematocrit (Bld) [Volume fraction] 43.1 % High 33.7-40.4 [facility] Comment on above: Performed By: #### [id number], [id number], 3836705, 12154461, 4171501, 1865104402, 6334768, 3485071, [id number] #### [facility] (DEFAULT) [address] [place] [address] Hemoglobin (Bld) [Mass/Vol] 14.2 g/dL Normal 11.3-15.9 [facility] Comment on above: Performed By: #### 7071651, [id number], 0589390, 19346118, 2003290, 4053391081, 8291892, 0162564, [id number] #### [facility] (DEFAULT) [address] [place] [address] Instr WBC 9.3 x10 Invalid Interpretation Code [facility] Comment on above: Performed By: #### [id number], [id number], 0265783, 38306450, 0462475, 4145753465, 8192097, 5597775, [id number] #### [facility] (DEFAULT) [address] [place] [address] Man Diff? Auto Normal [facility] Comment on above: Performed By: #### 6091515, [id number], 0176201, 73383900, 3059147, 7733336397, 8121437, 8904544, [id number] #### [facility] (DEFAULT) [address] [place] [address] 40015 MCH (RBC) [Entitic mass] 27 pg Normal 24-34 [facility] Comment on above: Performed By: #### [id number], [id number], 1826867, 66802483, 6389302, 3723406937, 9589784, 8287075, [id number] #### [facility] (DEFAULT) [address] [place] [address] 59562 MCHC (RBC) [Mass/Vol] 33 g/dL Normal 26-37 [facility] Comment on above: Performed By: #### [id number], [id number], 1268170, 07889744, 7437485, 7286315848, 2029395, 6912851, [id number] #### [facility] (DEFAULT) [address] [place] [address] 95374 MCV (RBC) [Entitic vol] 81 fL Normal 81-100 [facility] Comment on above: Performed By: #### [id number], [id number], 5592056, 96611948, 1680020, 9831405730, 2929445, 0269760, [id number] #### [facility] (DEFAULT) [address] [place] [address] 00398 Platelet 459 x10 High 138-427 [facility] Comment on above: Performed By: #### 8456951, [id number], 4423677, 06138874, 8395665, 7500127722, 7563292, 2989630, [id number] #### [facility] (DEFAULT) [address] [place] [address] 35354 Platelet mean volume (Bld) [Entitic vol] 8.4 fL Normal 6.3-10.2 [facility] Comment on above: Performed By: #### [id number], [id number], 0855033, 37674016, 0713665, 0590716800, 9811284, 6384406, 6507509420 #### [facility] (DEFAULT) [address] [place] [address] RBC 5.34 x10 High 3.70-5.30 [facility] Comment on above: Performed By: #### 9092761, [id number], 4788541, 11767145, 8699253, 1103046129, 3548756, 8813004, 4845493679 #### [facility] (DEFAULT) [address] [place] [address] WBC 9.3 x10 Normal 3.5-10.5 [facility] Comment on above: Performed By: #### 5782251, 9557242978, 7565693, 60045609, 5260430, 0033183057, 9141782, 9901336, 7752447757 #### [facility] (DEFAULT) [address] [place] [address] Standard 01-10-2021 eGFR Non AA >60 Invalid Interpretation Code [facility] Comment on above: Performed By: #### [id number], [id number], 1275716, 49155595, 9004093, 5162266248, 5387555, 2885603, 5669121987 #### [facility] (DEFAULT) [address] [place] [address] eGFR AA >60 Invalid Interpretation Code [facility] Comment on above: Result Comment: Chronic Kidney disease c ould be indicated at eGFRs of less than 60 ml/min/1.73m2. Kidney Failure is indicated at less than 15 ml/min/1.73m2 Performed By: #### 2 492883, [id number], 6197896, 53883638, 5668664, 2211154113, 4194946, 9334216, 7354578783 #### [facility] (DEFAULT) [address] [place] [address] Albumin [Mass/Vol] 4.2 g/dL Normal 3.5-5.0 [facility] Comment on above: Performed By: #### 8091532, [id number], 2523380, 59771021, 9638062, 4612469451, 3797750, 8631385, 9420787988 #### [facility] (DEFAULT) [address] [place] [address] Albumin/Globulin [Mass ratio] 1.2 {ratio} Low 1.4-2.6 [facility] Comment on above: Performed By: #### [id number], [id number], 5915928, 70842377, 8075651, 0985258679, 6971653, 3603090, 1053117906 #### [facility] (DEFAULT) [address] [place] [address] Alk Phos 77 IU/L Normal 32-91 [facility] Comment on above: Performed By: #### 3134974, 1456753128, 7674287, 72769853, 2248099, 5427561244, 2088660, 0331864, 6255118379 #### [facility] (DEFAULT) [address] [place] [address] ALT [Catalytic activity/Vol] 22.0 U/L Normal 14.0-54.0 [facility] Comment on above: Performed By: #### 0607866, 6160071331, 9463660, 37167889, 9164767, 9945468625, 5070996, 1341919, 9049969100 #### [facility] (DEFAULT) [address] [place] [address] Anion gap [Moles/Vol] 12.0 mmol/L Normal 5.0-19.0 [facility] Comment on above: Performed By: #### 6677469, 1361866740, 1857447, 67562533, 1962427, 8637231699, 2278073, 3226525, 4405548977 #### [facility] (DEFAULT) [address] [place] [address]1228 AST [Catalytic activity/Vol] 18 U/L Normal 15-41 [facility] Comment on above: Performed By: #### 1620189, 5838166804, 0675918, 74641358, 8610874, 1933643683, 8248146, 6558261, 2046716237 #### [facility] (DEFAULT) [address] [place] [address] 78105 Bili Total 0.5 mg/dL Normal 0.3-1.2 [facility] Comment on above: Performed By: #### 3149531, 3790933177, 7211760, 86877774, 3922592, 9411455128, 8092943, 7105303, 9338730962 #### [facility] (DEFAULT) [address] [place] [address]67[address] Calcium [Mass/Vol] 9.0 mg/dL Normal 8.9-10.3 [facility] Comment on above: Performed By: #### 8566437, 9368469626, 0094602, 87139638, 1152012, 1387219775, 6488212, 5690496, 9471328243 #### [facility] (DEFAULT) [address] [place] [address] 19758 Chloride [Moles/Vol] 105 mmol/L Normal 101-111 [facility] Comment on above: Performed By: #### 4673985, 9194609568, 0619189, 40473217, 9531132, 6265649748, 0064237, 9002192, 0989843572 #### [facility] (DEFAULT) [address] [place] [address] 33873 CO2 [Moles/Vol] 24 mmol/L Normal 21-32 [facility] Comment on above: Performed By: #### 6828261, 0236882055, 4042012, 69101299, 8005891, 5690128018, 1939801, 1525471, 8821363842 #### [facility] (DEFAULT) [address] [place] [address] 46171 Creatinine [Mass/Vol] 0.71 mg/dL Normal 0.60-1.30 [facility] Comment on above: Performed By: #### 8776428, 5100335679, 2901532, 39906938, 3524212, 8935256117, 9726107, 3070082, 3683231545 #### [facility] (DEFAULT) [address] [place] [address] 60581 Globulin (S) [Mass/Vol] 3.6 g/dL Normal 1.5-4.3 [facility] Comment on above: Performed By: #### 7843359, 6456647682, 7220755, 24734796, 2684739, 6042096764, 9596664, 5341010, 5980631445 #### [facility] (DEFAULT) [address] [place] [address] 27110 Glucose [Mass/Vol] 97.0 mg/dL Normal 74.0-118.0 [facility] Comment on above: Performed By: #### 5398138, 4815314830, 4340396, 85329589, 6974484, 0366063735, 0221282, 3624048, 3409787872 #### [facility] (DEFAULT) [address] [place] [address] 26198 Osmolality 272 mOsm/L Invalid Interpretation Code [facility] Comment on above: Performed By: #### 6356365, 3465544489, 9095457, 36618987, 2562792, 3940008589, 3131037, 1804700, 4718772831 #### [facility] (DEFAULT) [address] [place] [address] 05594 Potassium [Moles/Vol] 3.7 mmol/L Normal 3.6-5.1 [facility] Comment on above: Performed By: #### 4959020, 1570534516, 3183369, 79945480, 7120938, 7086716729, 5757699, 9518979, 2264465977 #### [facility] (DEFAULT) [address] [place] [address] 46764 Protein [Mass/Vol] 7.8 g/dL Normal 6.5-8.1 [facility] Comment on above: Performed By: #### 5656943, 6375459968, 8587576, 86101243, 7770732, 9759316952, 6572583, 2043226, 8213052237 #### [facility] (DEFAULT) [address] [place] [address] 70854 Sodium [Moles/Vol] 137.0 mmol/L Normal 136.0-144.0 [facility] Comment on above: Performed By: #### 4767389, 0194469582, 3148930, 40445693, 6103422, 7794599281, 6384087, 9250656, 7326372071 #### [facility] (DEFAULT) [address] [place] [address] 55821 Urea nitrogen [Mass/Vol] 9 mg/dL Normal 8-26 [facility] Comment on above: Performed By: #### 4419523, 9876046153, 3199074, 73432577, 2936003, 4478683057, 7100431, 0965260, 4917417471 #### [facility] (DEFAULT) [address] [place] [address] 91652 Urea nitrogen/Creatin ine [Mass ratio] 13.0 mg/mg Normal 4.6-16.2 [facility] Comment on above: Performed By: #### 6103890, 3760380481, 8839356, 27973914, 8742179, 5513880118, 9931611, 3909334, 5733159685 #### [facility] (DEFAULT) [address] [place] [address] 29337 CRPon 01-10-2021 CRP 0.8 mg/dL High <=0.5 [facility] Comment on above: Performed By: #### 0818215, 9758276297, 5085274, 81586710, 5164599, 6456703769, 6151221, 2613541, 4667103606 #### [facility] (DEFAULT) [address] [place] [address] ED Clinical Summaryon 2020 ED Clinical Summary [facility] - Emergency Department [address] [place] [address] ED Clinical Summary PERSON INFORMATION Name: SANDRA FRANKS Age: 20 Years Sex: FEMALE : 2000 MRN: Acct#: Visit Reason: Abdominal pain; STOMACH PAIN, VOMITING Arrival: 01/10/2021 13:48:09 Discharge: 01/10/2021 15:25:00 LOS: 000 01:37 Check In: 01/10/2021 13:48:09 Checkout:01/10/2021 15:25:00 Address: [address] [place] [address] PCP: Provider, None PROVIDER INFORMATION Provider Role Assigned Unassigned Arthur Wallace MD ED Provider 01/10/2021 13:51:38 Jessi Bernardo RN ED Nurse 01/10/2021 13:55:46 VITALS INFORMATION Vital Sign Triage Latest Temperature Tympanic Temperature Temporal Artery Pulse Rate 100 bpm 67 bpm O2 Sat 100 % 96 % Respiratory Rate 18 br/min 16 br/min Blood Pressure /97 mmHg /97 mmHg MEDICAL INFORMATION Medications Given: Allergy Information: No Known Medication Allergies PHYSICIAN DOCUMENTATION Patient: SANDRA FRANKS Age: 20 years Sex: FEMALE : 2000 Associated Diagnoses: Chronic abdominal pain Author: Arthur Wallace MD Basic Information Time seen: Date & time 01/10/2021 13:58:00. Chronic colicky abdominal pain History of Present Illness 20-year-old white female presents to the emergency room complaining of chronic colicky generalized abdominal pain. She states that she has been evaluated in [place] where she lives numerous times for her abdominal pain. She states she does not trust the doctors there and heard that the hospital here was good. She reports that she has seen Dr. 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 Patient admits that she has been in admitted to the hospital almost every year with constipation symptoms. She states that she has been taking magnesium citrate with minimal relief. She denies any fever chills, she has nausea and occasional emesis. Patient states she is on control and is not sexually active and denies any chance of . Review of Systems Constitutional symptoms: No fever, no chills. Gastrointestinal symptoms: Abdominal pain, moderate, diffuse, colicky, nausea, vomiting, constipation, No diarrhea, Genitourinary symptoms: No dysuria, no hematuria. Musculoskeletal symptoms: No back pain, Psychiatric symptoms: Anxiety. Additional review of systems information: All other systems reviewed and otherwise negative. Health Status Allergies: No active allergies have been recorded.. Past Medical/ Family/ Social History Medical history: No active or resolved past medical history items have been selected or recorded.. Surgical history: No active procedure history items have been selected or recorded.. Family history: No family history items have been selected or recorded.. Social history: Social & Psychosocial Habits No Data Available . Problem list: No qualifying data available . Physical Examination Vital Signs Vital Signs 01/10/2021 13:59 EDT Temperature Oral DateCorrection (In Error) 01/10/2021 13:51 EDT Temperature Oral In Error DegC (In Error) Temperature Oral DateCorrection (In Error) Temperature Temporal 36.6 DegC Peripheral Pulse Rate 100 bpm Respiratory Rate 18 br/min Systolic Blood Pressure 117 mmHg Diastolic Blood Pressure 97 mmHg HI SpO2 100 % Oxygen Therapy Room air . Per nurse's notes. General: Alert, no acute distress, Obese. Skin: Warm, dry, pink. Head: Normocephalic, atraumatic. Neck: Trachea midline. Eye: Normal conjunctiva. Ears, nose, mouth and throat: Oral mucosa moist. Cardiovascular: Normal peripheral perfusion. Respiratory: Respirations are non-labored. Gastrointestinal: Soft, Tenderness: Mild, generalized, Guarding: Negative, Rebound: Negative. Back: Normal alignment. Musculoskeletal: Normal ROM, normal strength. Neurological: Alert and oriented to person, place, time, and situation, normal motor observed, normal speech observed. Psychiatric: Cooperative, appropriate mood & affect. Medical Decision Making Differential Diagnosis: Abdominal pain, biliary colic, pancreatitis, urinary tract infection, constipation, Irritable bowel disease, inflammatory bowel disease. Rationale: Abdominal work-up initiated, CRP, sedimentation rate, lactic acid levels ordered.. Results review: Lab results : Lab Flowsheet 01/10/2021 14:21 EDT Sodium Level 137.0 mmol/L Potassium Level 3.7 mmol/L Chloride Level 105 mmol/L CO2 24 mmol/L Anion Gap 12.0 mmol/L Glucose Level 97.0 mg/dL BUN 9 mg/dL Creatinine Level 0.71 mg/dL BUN/Creat Ratio 13.0 eGFR AA >60 mL/min/1.73m2 NA eGFR Non AA >60 mL/min/1.73m2 NA Calcium Level 9.0 mg/dL Magnesium 1.94 mg/dL Bili Total 0.5 mg/dL Alk Phos 77 IU/L AST/SGOT 18 IU/L ALT/SGPT 22.0 IU/L Protein Total 7.8 gm/dL Albumin Level 4.2 gm/dL Globulin 3.6 gm/dL A/G Ratio 1.2 LOW Lipase Level 19.0 IU/L LOW Osmolality (more content not included)... Normal [facility] ED Note - Physicianon 2020 ED Note - Physician Patient: SANDRA FRANKS Age: 20 years Sex: FEMALE : 2000 Associated Diagnoses: Chronic abdominal pain Author: Arthur Wallace MD Basic Information Time seen: Date & time 01/10/2021 13:58:00. Chronic colicky abdominal pain History of Present Illness 20-year-old white female presents to the emergency room complaining of chronic colicky generalized abdominal pain. She states that she has been evaluated in [place] where she lives numerous times for her abdominal pain. She states she does not trust the doctors there and heard that the hospital here was good. She reports that she has seen Dr. 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 Patient admits that she has been in admitted to the hospital almost every year with constipation symptoms. She states that she has been taking magnesium citrate with minimal relief. She denies any fever chills, she has nausea and occasional emesis. Patient states she is on control and is not sexually active and denies any chance of . Review of Systems Constitutional symptoms: No fever, no chills. Gastrointestinal symptoms: Abdominal pain, moderate, diffuse, colicky, nausea, vomiting, constipation, No diarrhea, Genitourinary symptoms: No dysuria, no hematuria. Musculoskeletal symptoms: No back pain, Psychiatric symptoms: Anxiety. Additional review of systems information: All other systems reviewed and otherwise negative. Health Status Allergies: No active allergies have been recorded.. Past Medical/ Family/ Social History Medical history: No active or resolved past medical history items have been selected or recorded.. Surgical history: No active procedure history items have been selected or recorded.. Family history: No family history items have been selected or recorded.. Social history: Social & Psychosocial Habits No Data Available . Problem list: No qualifying data available . Physical Examination Vital Signs Vital Signs 01/10/2021 13:59 EDT Temperature Oral DateCorrection (In Error) 01/10/2021 13:51 EDT Temperature Oral In Error DegC (In Error) Temperature Oral DateCorrection (In Error) Temperature Temporal 36.6 DegC Peripheral Pulse Rate 100 bpm Respiratory Rate 18 br/min Systolic Blood Pressure 117 mmHg Diastolic Blood Pressure 97 mmHg HI SpO2 100 % Oxygen Therapy Room air . Per nurse's notes. General: Alert, no acute distress, Obese. Skin: Warm, dry, pink. Head: Normocephalic, atraumatic. Neck: Trachea midline. Eye: Normal conjunctiva. Ears, nose, mouth and throat: Oral mucosa moist. Cardiovascular: Normal peripheral perfusion. Respiratory: Respirations are non-labored. Gastrointestinal: Soft, Tenderness: Mild, generalized, Guarding: Negative, Rebound: Negative. Back: Normal alignment. Musculoskeletal: Normal ROM, normal strength. Neurological: Alert and oriented to person, place, time, and situation, normal motor observed, normal speech observed. Psychiatric: Cooperative, appropriate mood & affect. Medical Decision Making Differential Diagnosis: Abdominal pain, biliary colic, pancreatitis, urinary tract infection, constipation, Irritable bowel disease, inflammatory bowel disease. Rationale: Abdominal work-up initiated, CRP, sedimentation rate, lactic acid levels ordered.. Results review: Lab results : Lab Flowsheet 01/10/2021 14:21 EDT Sodium Level 137.0 mmol/L Potassium Level 3.7 mmol/L Chloride Level 105 mmol/L CO2 24 mmol/L Anion Gap 12.0 mmol/L Glucose Level 97.0 mg/dL BUN 9 mg/dL Creatinine Level 0.71 mg/dL BUN/Creat Ratio 13.0 eGFR AA >60 mL/min/1.73m2 NA eGFR Non AA >60 mL/min/1.73m2 NA Calcium Level 9.0 mg/dL Magnesium 1.94 mg/dL Bili Total 0.5 mg/dL Alk Phos 77 IU/L AST/SGOT 18 IU/L ALT/SGPT 22.0 IU/L Protein Total 7.8 gm/dL Albumin Level 4.2 gm/dL Globulin 3.6 gm/dL A/G Ratio 1.2 LOW Lipase Level 19.0 IU/L LOW Osmolality 272 mOsm/L NA Troponin I High Sensitivity <2 pg/mL CRP 0.8 mg/dL HI WBC 9.3 x103/mcL RBC 5.34 x106/mcL HI Hgb 14.2 gm/dL Hct 43.1 % HI MCV 81 fL MCH 27 pg MCHC 33 gm/dL RDW 16.1 % HI Platelet 459 x103/mcL HI MPV 8.4 fL Auto Neut % 61 % Auto Lymph % 29 % Auto Red Willow % 8 % Auto Eos % 1.2 % Auto Baso % 0.4 % Neut Abs# 5.6 x103/mcL Lymph Abs# 2.7 x103/mcL Red Willow Abs# 0.8 x103/mcL Eos Abs# 0.1 x103/mcL Baso Abs# 0.0 x103/mcL Sed Rate 16 mm/hr Tube Collected Yes 01/10/2021 14:20 EDT Lactic Acid 8.4 mg/dL 01/10/2021 14:05 EDT UA Color Yellow UA Clarity CLEAR UA Glucose NEGATIVE UA Ketones NEGATIVE UA Spec Grav 1.015 UA Blood TRACE UA pH 6.5 UA Protein NEGATIVE UA Urobilinogen 0.2 mg/dL UA Nitrite NEGATIVE UA Leuk Est SMALL UA Bilirubin NEGATIVE Urine Source Clean Catch Micro? Indicated Culture? Indicated UA WBC 3-5 UA RBC None Seen UA Squam Epi Moderate UA Bacteria Trace . Radiology results: Emerge (more content not included)... Normal [facility] ED Note-Nursingon 01-10-2021 ED Note-Nursing AAOX3. PATHAK. Skin warm, dry ,pink. REspirations regular, even. C/O ABD pain that is generalized, lower bilat and pinching at times. States it is constant. States has seen gastroentrologist in last 2 weeks and has been taking Miralax with no relief. States vomited yesterday after eating Chipotle and had [employer] also. States LBM this AM [employer], soft, brown and small amount. Breath sounds CTA bilat. ABD obese, soft, nontender to palpation. BS present X4 quadrants though hypoactive lower quadrants with high pitched sounds. Denies pain upon urination. Dr. Wallace in for exam. Normal [facility] ED Patient Summaryon 021 ED Patient Summary [facility] - Emergency Department [address] [place], [place] [id number] PATIENT DISCHARGE INSTRUCTIONS Patient Information Name: SANDRA FRANKS Age: 20 Years Date of : 2000 Reason For Visit: Abdominal pain; STOMACH PAIN, VOMITING Arrival Time: 01/10/2021 13:48:09 Primary Care Physician: Provider, None Attending Physician: Arthur Wallace MD Comment: Visit Diagnosis: Diagnoses This Visit Abdominal pain ([id number]) Chronic abdominal pain (R10.9) Prescription Information: If you have been given a prescription for narcotics, seek immediate medical attention if you have any difficulty breathing or any sudden status changes such as confusion and sleepiness. If you or anyone you know is experiencing suicidal thoughts, mental health, alcohol and/or drug addiction problems; contact the [facility] 15/03 Crisis Hotline -text 4hope to 741741. If you received any narcotics, sedation, or any other medication that causes drowsiness for the next 24 hours, unless otherwise directed: ? Do not drive a car. ? Do not operate machinery such as power tools, lawn mowers, drills, sewing machines, or stoves ? Avoid alcoholic beverages and drugs for allergies, nerves, or sleep ? Do not make important personal or business decisions or sign any legal documents With: Address: When: Wilner Palomares [address] [place] [address] Business (1) Within 3 to 5 days Medication Information: The exam and treatment you received today in the [facility] Emergency Department were for an urgent problem and are not intended as complete care. It is important for you to follow up with a doctor, nurse practitioner, or physician?s front office assistant for ongoing care. If your symptoms become worse or you do not improve as expected and you are unable to reach your usual health care provider, you should return to the Emergency Department, we are available 24 hours a day. For those patients who have received Radiology results, the interpretation of your X-ray as given to you by our Emergency Department physician is only a preliminary report. The Radiologist will review your films and if there is a change in the diagnosis you will be notified by phone. Please make sure you have provided a working phone number so we can reach you if necessary. In the event that you had a lab culture while you were a patient in the Emergency Department, you will be notified by phone if there is a need to change your antibiotic. Please make sure you have provided a working phone number so we can reach you if necessary. [facility] Emergency Department has provided you with a complete list of medications post discharge. Please inform your people manager/provider of your visit and for further instruction on these medications. Any specific questions regarding your chronic medications and dosages should be discussed with your primary care physician(s) and/or pharmacist. Visit Information Allergies: Substance Reaction Symptoms Type Comments No Known Medication Allergies Drug Vital Signs: Vitals and Measurements this Visit (last charted value for your 01/10/2021 visit) Vital Signs This Visit Temperature Temporal: 36.6 DegC Peripheral Pulse Rate: 67 bpm Respiratory Rate: 16 br/min Systolic Blood Pressure: 123 mmHg Diastolic Blood Pressure: 77 mmHg SpO2: 96 % Oxygen Therapy: Room air Measurements This Visit Height/Length Dosin.560 cm Height/Length Estimated: 162.560 cm Weight Dosin.470 kg Weight Estimated: 122.470 kg Problems List: Problem Onset Comments No Problems found Patient Education Abdominal Pain, Adult Follow-up with your primary care physician and railroad yard worker to review this emergency room visit. Return to the emergency room for any worsening symptoms. Many things can cause belly (abdominal) pain. Most times, belly pain is not dangerous. Many cases of belly pain can be watched and treated at home. Sometimes, though, belly pain is serious. Your doctor will try to find the cause of your belly pain. Follow these instructions at home: Medicines ? Take [id number] and prescription medicines only as told by your doctor. ? Do not take medicines that help you poop (laxatives) unless told by your doctor. General instructions ? Watch your belly pain for any changes. ? Drink enough fluid to keep your pee (urine) pale yellow. ? Keep all follow-up visits as told by your doctor. This is important. Contact a doctor if: ? Your belly pain changes or gets worse. ? You are not hungry, or you lose weight without trying. ? You are having trouble pooping (constipated) or have watery poop (diarrhea) for more than 2?3 days. ? You have pain when you pee or poop. ? Your belly pain wakes you up at night. ? Your pain get (more content not included)... Normal [facility] Extra Redon 01-10-2021 Tube Collected Yes Invalid Interpretation Code [facility] Comment on above: Performed By: #### [id number], [id number], 9142517, [id number], 6712594, [id number], 0890496, 8684992, [id number] #### [facility] (DEFAULT) [address] [place] [address] Lactic Acidon 01-10-2021 Lactic Acid 8.4 mg/dL Normal 4.5-19.8 [facility] Comment on above: Performed By: #### [id number], [id number], 2528845, 86400775, 5897647, [id number], 6708003, 8523415, [id number] #### [facility] (DEFAULT) [address] [place] [address] Lipaseon 01-10-2021 Lipase Level 19.0 IU/L Low 22.0-51.0 [facility] Comment on above: Performed By: #### [id number], [id number], 4961246, 65054919, 3491549, [id number], 7782184, 6862228, [id number] #### [facility] (DEFAULT) [address] [place] [address] Magnesiumon 01-10-2021 Magnesium [Mass/Vol] 1.94 mg/dL Normal 1.80-2.50 [facility] Comment on above: Performed By: #### [id number], [id number], 1577231, 35822662, 4869759, [id number], 1908063, 6624056, [id number] #### [facility] (DEFAULT) [address] [place] [address] Sed Rateon 01-10-2021 Sed Rate 16 mm/hr Normal 0-20 [facility] Comment on above: Performed By: #### [id number], [id number], 1056242, 32640887, 0935991, [id number], 5079915, 2305062, [id number] #### [facility] (DEFAULT) [address] [place] [address] TnI HSon 01-10-2021 Troponin I High Sensitivity <2 Normal <=15 [facility] Comment on above: Result Comment: Male Baseline Delta 1Hr (Note pg/mL=ng/L) <20pg/mL 50-60% >20pg/mL 20% Female Baseline Delta 1Hr <15pg/mL 50-60% >15pg/mL 20% Other Baseline Delta 1Hr <18ng/mL 50-60% >18ng/mL 20% ([employer] [employer] Guidelines March 2018) Performed By: #### 2 298856, [id number], 8138561, 07328762, 9892291, 3834263942, 7119375, 0420308, [id number] #### [facility] (DEFAULT) [address] [place] [address] UA [id number] 01-10-2021 UA Bacteria Trace Normal [facility] Comment on above: Order Comment: Urinalysis Microscopic or [place] added on by Discern Expert Rules system. Performed By: #### 2 354842, [id number], 7607243, 29857949, 3647418, 3149160132, 5229068, 0436617, [id number] #### [facility] (DEFAULT) [address] [place] [address] 22859 UA RBC None Seen Normal [facility] Comment on above: Order Comment: Urinalysis Microscopic or [place] added on by Discern Expert Rules system. Performed By: #### 2 464782, [id number], 5040769, 05172338, 5383856, 3270126476, 6745167, 9276982, [id number] #### [facility] (DEFAULT) [address] [place] [address] UA Squam Epi Moderate Normal [facility] Comment on above: Order Comment: Urinalysis Microscopic or [place] added on by Discern Expert Rules system. Performed By: #### 2 855622, [id number], 3362478, 46378770, 3035339, 2364242134, 5759504, 0545970, [id number] #### [facility] (DEFAULT) [address] [place] [address]326 UA WBC 3-5 Normal [facility] Comment on above: Order Comment: Urinalysis Microscopic or [place] added on by Discern Expert Rules system. Performed By: #### 2 423047, [id number], 0630495, 82841210, 6719305, 3054940895, 8939107, 7547952, [id number] #### [facility] (DEFAULT) [address] [place] [address]95 UA w Culture if Ind Standard on 01-10-2021 Breakpoint UA [facility] Comment on above: Performed By: #### 4612587, [id number], 9833731, 52493043, 2132104, 7842766059, 7577580, 4454143, [id number] #### [facility] (DEFAULT) [address] [place] [address]197 Color (U) Yellow Normal [facility] Comment on above: Performed By: #### 7695623, [id number], 7301845, 07452479, 9661749, 0810161353, 2911090, 3089477, [id number] #### [facility] (DEFAULT) [address] [place] [address] Culture? Indicated Invalid Interpretation Code [facility] Comment on above: Performed By: #### 8772519, [id number], 8654013, 61675019, 1735751, 8660967073, 5922755, 6908455, [id number] #### [facility] (DEFAULT) [address] [place] [address] Glucose (U) [Mass/Vol] Negative [facility] Comment on above: Performed By: #### 4630686, [id number], 1515062, 73335558, 4596455, 9612462905, 1458089, 5474438, [id number] #### [facility] (DEFAULT) [address] [place] [address]37 Ketones Ql (U) Negative [facility] Comment on above: Performed By: #### 8697417, [id number], 8227212, 02487559, 2394676, 1146651675, 2245832, 6626242, [id number] #### [facility] (DEFAULT) [address] [place] [address] Micro? Indicated Invalid Interpretation Code [facility] Comment on above: Performed By: #### 7497760, [id number], 5353517, 89580860, 2542533, 3247297996, 2433525, 2496738, [id number] #### [facility] (DEFAULT) [address] [place] [address] UA Bilirubin Negative Normal [facility] Comment on above: Performed By: #### 6923536, [id number], 0318527, 10283780, 4572216, 9861064661, 7443216, 4024255, 7832752691 #### [facility] (DEFAULT) [address] [place] [address] UA Blood TRACE Abnormal NEGATIVE [facility] Comment on above: Performed By: #### 5416985, [id number], 6430490, 92341098, 5711586, 7848998789, 4168331, 0444379, [id number] #### [facility] (DEFAULT) [address] [place] [address] UA Clarity CLEAR Normal CLEAR [facility] Comment on above: Performed By: #### 3274048, [id number], 4045136, 92025702, 2855061, 2733787354, 6534924, 6601860, [id number] #### [facility] (DEFAULT) [address] [place] [address] UA Leuk Est SMALL Abnormal NEGATIVE [facility] Comment on above: Performed By: #### 0896271, 0443807588, 4036286, 97687096, 8849503, 1384362750, 3180820, 8522484, [id number] #### [facility] (DEFAULT) [address] [place] [address]505 UA Nitrite Negative Normal NEGATIVE [facility] Comment on above: Performed By: #### 8737428, 4344719394, 1814969, 27972067, 8409859, 9029316941, 2345324, 0327502, [id number] #### [facility] (DEFAULT) [address] [place] [address] 41688 UA pH 6.5 Normal 5-8 [facility] Comment on above: Performed By: #### 0241837, 9705744356, 3930348, 41835827, 8295642, 8157815772, 9668381, 5167351, 6881737003 #### [facility] (DEFAULT) [address] [place] [address] 70740 UA Protein Negative Normal NEGATIVE [facility] Comment on above: Performed By: #### 7461644, [id number], 2097878, 13473331, 1404050, 6154879647, 1443535, 0145557, 3130993926 #### [facility] (DEFAULT) [address] [place] [address] 29559 UA Spec Grav 1.015 Normal 1.001-1.035 [facility] Comment on above: Performed By: #### 6911176, 5515532104, 6581685, 76855756, 5782189, 9323367043, 3481497, 3597198, 9344485139 #### [facility] (DEFAULT) [address] [place] [address] UA Urobilinogen 0.2 mg/dL Normal 0.2-1.0 [facility] Comment on above: Performed By: #### 4022177, [id number], 8687730, 24930747, 6872660, 1274886086, 7686038, 2373832, 6308386741 #### [facility] (DEFAULT) [address] [place] [address]385 Urine Source Clean Catch Normal [facility] Comment on above: Performed By: #### 1826952, [id number], 7187723, 80970558, 2609545, 3922369268, 4450453, 3169264, [id number] #### [facility] (DEFAULT) [address] [place] [address] 19608 XR Abdomen Series w/ Chest 1 Viewon 01-10-2021 XR Abdomen Series w/ Chest 1 View EXAM: XR Abdomen Series w/ Chest 1 View HISTORY: Abdominal Pain COMPARISON: None TECHNIQUE: PA view of the chest was obtained. Supine and upright views of the abdomen were obtained. FINDINGS: Heart and mediastinal contours are unremarkable in appearance. No acute infiltrate or consolidations are seen. Slight convexity of the dorsal spine to the right. Bowel gas pattern is grossly nonspecific. No evidence of bowel obstruction or free intraperitoneal air suggested. No evidence of increased fecal load in the colon. Bony structures are grossly intact. IMPRESSION: No acute process seen in the chest. Grossly nonspecific abdomen. Final Dictated by: Hipolito Livingston MD Dictated DT/TM: 01/10/21 2:57 Signed (Electronic Signature): Hipolito Livingston MD 01/10/21 3:01 pm Technologist: Peña MARTINEZ Normal [facility] C-Reactive Proteinon 021 C-Reactive Protein 0.9 mg/dL High <0.9 [facility] CBC and Differentialon 01-04 Abs Baso 0.05 k/uL Normal <0.11 [facility] Abs Red Willow 0.56 k/uL Normal <0.87 [facility] Abs Neut 5.87 k/uL Normal 1.45-7.50 [facility] Absolute nRBC <0.01 Normal <0.01 [facility] Basophils/100 WBC (Bld) 0.5 % Normal [facility] DTYPE Auto Diff Normal [facility] Eosinophils (Bld) [#/Vol] 0.11 10*3/uL Normal <0.46 [facility] Eosinophils/100 WBC (Bld) 1.2 % Normal [facility] Erythrocyte distribution width (RBC) [Ratio] 15.4 % High 11.5-15.0 [facility] Hematocrit (Bld) [Volume fraction] 43.1 % Normal 36.0-46.0 [facility] Hemoglobin (Bld) [Mass/Vol] 14.1 g/dL Normal 11.5-15.5 [facility] Lymphocytes (Bld) [#/Vol] 2.54 10*3/uL Normal 1.00-4.00 [facility] Lymphocytes/100 WBC (Bld) 27.8 % Normal [facility] MCH 26.5 pG Normal 26.0-34.0 [facility] MCHC (RBC) [Mass/Vol] 32.7 g/dL Normal 30.5-36.0 [facility] MCV (RBC) [Entitic vol] 81.0 fL Normal 80.0-100.0 [facility] Monocytes/100 WBC (Bld) 6.1 % Normal [facility] Neutrophils/100 WBC (Bld) 64.4 % Normal [facility] NRBCs 0.0 /100 WBC Normal 0 [facility] Platelet mean volume (Bld) [Entitic vol] 8.5 fL Low 9.0-12.7 [facility] Platelets (Bld) [#/Vol] 435 10*3/uL High 150-400 [facility] RBC (Bld) [#/Vol] 5.32 10*6/uL High 3.90-5.20 [facility] WBC (Bld) [#/Vol] 9.13 10*3/uL Normal 3.70-11.[address] [facility] [address] ABD/PEL W IVCONon 05-15-[address] ABD/PEL W IVCON * * *Final Report* * * DATE OF EXAM: Jan 04 2021 1:00PM [facility] 0530 - CT ABD/PEL W IVCON / PROCEDURE REASON: SBO intermittent or low-grade suspected * * * * Physician Interpretation * * * * EXAMINATION: CT ABDOMEN AND PELVIS WITH IV CONTRAST CLINICAL HISTORY: SBO intermittent or low-grade suspected. llq pain TECHNIQUE: CT of the abdomen and pelvis was performed using standard technique, scanning from just above the dome of the diaphragm to the iliac crest. Contrast: IV: 150 ml of Omnipaque 300 ORAL: None CT Radiation dose: Integrated Dose-length product (DLP) for this visit = 1245 mGy*cm. CT Dose Reduction Employed: Automated exposure control(AEC) and iterative recon COMPARISON: None. Abdomen / Pelvis: Liver: No focal hepatic lesions. Spleen: No focal splenic lesion. Pancreas: No focal pancreatic lesions. Adrenals: No mass. Biliary: No bile duct dilation. No gallbladder wall thickening. Kidneys: Symmetric nephrograms bilaterally without hydronephrosis. Vasculature: The celiac axis and SMA are patent. The portal vein and branches, splenic vein, SMV, and hepatic veins are patent. Abdominal aorta is normal in caliber. GI tract: No bowel obstruction. Few scattered colonic diverticula without acute diverticulitis. Normal appendix. Lymph nodes: No lymphadenopathy by CT size criteria. Mesentery/Peritoneum: No ascites, fluid collection, or mass. Pelvis: No mass, ascites or fluid collection. Urinary bladder is unremarkable. Bones/Soft tissues: Small fat-containing umbilical hernia. Lower thorax: Lower lungs are clear. [employer] Employee (topogram) images: Unremarkable. IMPRESSION: No acute process in the abdomen or pelvis. Workplace Rehabilitation Officer: PSCB Transcribe Date/Time: Jan 04 2021 1:41P Dictated by : TORI FOURNIER MD This examination was interpreted and the report reviewed and electronically signed by: TORI FOURNIER MD on Jan 04 2021 1:44PM EST [id number] Normal [facility] Comp Metabolic Panelon 01-04 Albumin [Mass/Vol] 4.0 g/dL Normal 3.9-4.9 [facility] ALP [Catalytic activity/Vol] 94 U/L Normal 34-123 [facility] ALT Unable to assay due to interference from hemolysis. Suggest reorder as clinically indicated. Normal 7-38 [facility] Anion gap [Moles/Vol] 8 mmol/L Low 9-18 [facility] AST Unable to assay due to interference from hemolysis. Suggest reorder as clinically indicated. Normal 13-35 [facility] Bilirubin [Mass/Vol] 0.2 mg/dL Normal 0.2-1.3 [facility] Calcium [Mass/Vol] 9.1 mg/dL Normal 8.5-10.2 [facility] Chloride [Moles/Vol] 104 mmol/L Normal 97-105 [facility] CO2 [Moles/Vol] 24 mmol/L Normal 22-30 [facility] Creatinine [Mass/Vol] 0.65 mg/dL Normal 0.58-0.96 [facility] eGFR- Amer. >60 Normal [facility] eGFR-All Other Races >60 Normal [facility] Comment on above: Result Comment: eGFR (Estimated GFR) Uni ts of measure: mL/min/1.73 meters squared eGFR is derived from the reexpressed MDRD Study equation using the following parameters: serum creatinine, age, gender and race. The creatinine assay has been calibrated to be traceable to IDMS. An eGFR <60 mL/min/1.73m2 for >3 months is consistent with chronic kidney disease. Refer to KDOQI guidelines for clinical interpretation. In patients with unstable renal function, e.g. those with acute kidney injury, the eGFR may not accurately reflect actual GFR. Glucose [Mass/Vol] 100 mg/dL High 74-99 [facility] Comment on above: Result Comment: The [place] Diabetes As sociation (ADA) provides guidance for cutoff values for fasting glucose and random glucose. The ADA defines fasting as no caloric intake for at least 8 hours. Fasting plasma glucose results between 100 to 125 mg/dL indicate increased risk for diabetes (prediabetes). Fasting plasma glucose results greater than or equal to 126 mg/dL meet the criteria for diagnosis of diabetes. In the absence of unequivocal hyperglycemia, results should be confirmed by repeat testing. In a patient with classic symptoms of hyperglycemia or hyperglycemic crisis, random plasma glucose results greater than or equal to 200 mg/dL meet the criteria for diagnosis of diabetes. Reference: Standards of Medical Care in Diabetes 2016, [place] Diabetes Association. Diabetes Care. 2016.39(Suppl 1). Potassium Unable to assay due to interference from hemolysis. Suggest reorder as clinically indicated. Normal 3.7-5.1 [facility] Protein [Mass/Vol] 7.7 g/dL Normal 6.3-8.0 [facility] Sodium [Moles/Vol] 136 mmol/L Normal 136-144 [facility] Urea nitrogen [Mass/Vol] 9 mg/dL Normal 7-21 [facility] ED NOTEon 01-04-2021 ED NOTE HNO ID: [id number] Author: María Saleh RN Service: ? Author Type: Registered Nurse Type: ED Notes Filed: 01/04/2021 2:33 PM Note Text: Patient verbalizes understanding of all instructions given. Encouraged to return to ED with worsening symptoms, or new concerning symptoms. Reports no questions or concerns at this time. Vitals are stable on discharge and no distress is noted. Ambulatory with a steady gait on discharge. Normal [facility] ED NOTE HNO ID: [id number] Author: María Saleh RN Service: ? Author Type: Registered Nurse Type: ED Notes Filed: 01/04/2021 1:41 PM Note Text: Additional labs drawn and sent. Patient is resting comfortably with call light in reach. Comfort rounds provided. Vitals are stable. Patient has no complaints or concerns at this time. Awaiting results. Normal [facility] ED NOTE HNO ID: [id number] Author: Popeye Monte RN Service: ? Author Type: Registered Nurse Type: ED Notes Filed: 01/04/2021 10:48 AM Note Text: Has tried linzess and mag citrate without relief Having trouble passing stool and having feeling of incomplete BMs [facility] ED NOTE HNO ID: [id number] Author: Popeye Monte RN Service: ? Author Type: Registered Nurse Type: ED Notes Filed: 01/04/2021 10:45 AM Note Text: Patient presents to ED for c/c abdominal pain Has hx of SBO and constipation vomited once today Ambulatory from triage [facility] ED PROV NOTEon 01-04-2021 ED PROV NOTE HNO ID: [id number] Author: Natalia Rodrigues DO Service: Emergency Medicine Author Type: Physician Type: ED Provider Notes Filed: 01/04/2021 3:24 PM Note Text: ED Provider Note Patient Name: Sandra Franks SERVICE DATE: 01/04/21 History Patient presents with: Abdominal Pain 20-year-old female presents with a chief complaint of intermittent abdominal pain for the past month. Patient has had multiple other ER visits. She is followed up with her gastroenterology. [place] it is due to constipation. Patient has tried MiraLAX, magnesium citrate, enemas, Linzess. Patient states nothing helps. She has been told that she has had bowel blockages in the past and that is her concern. Patient states that she is not passing gas. Has had nausea and vomiting. Patient's railroad yard worker tried to obtain outpatient CT and told patient that she will need to have colonoscopy as well but patient decided to just come here for evaluation. PAST MEDICAL HISTORY Diagnosis Date - Bowel obstruction (HCC) - Constipation - Delta storage pool disease (HCC) History reviewed. No pertinent surgical history. No family history on file. Social History Tobacco Use - Smoking status: Passive Smoke Exposure - Never Smoker - Smokeless tobacco: Never Used Substance and Sexual Activity - Alcohol use: Yes - Drug use: Never - Sexual activity: Not on file ALLERGIES No Known Allergies Review of Systems Constitutional: Positive for appetite change. Negative for activity change, chills and fever. HENT: Negative for rhinorrhea and sore throat. Eyes: Negative for visual disturbance. Respiratory: Negative for cough and shortness of breath. Cardiovascular: Negative for chest pain and palpitations. Gastrointestinal: Positive for abdominal pain, constipation and nausea. Negative for diarrhea and vomiting. Genitourinary: Positive for menstrual problem (Amenorrhea with Depo shot.). Negative for dysuria, frequency and pelvic pain. Musculoskeletal: Negative for back pain and neck pain. Skin: Negative for pallor and rash. Neurological: Negative for dizziness, syncope and headaches. Hematological: Does not bruise/bleed easily. Psychiatric/Behaviora l: Negative for confusion. The patient is not nervous/anxious. Physical Exam BP 140/85 Pulse 64 Temp (Src) 98 (Oral) Resp 15 Ht 5' 4 (1.63m) Wt 270 lb (122.5kg) SpO2 100% BMI 46.32 kg/(m2). O2 Therapy: Room Air Physical Exam Vitals reviewed. Constitutional: Appearance: She is well-developed. HENT: Head: Normocephalic and atraumatic. Eyes: Conjunctiva/sclera: Conjunctivae normal. Pupils: Pupils are equal, round, and reactive to light. Cardiovascular: Rate and Rhythm: Normal rate and regular rhythm. Pulmonary: Effort: Pulmonary effort is normal. Breath sounds: Normal breath sounds. Abdominal: Palpations: Abdomen is soft. Tenderness: There is abdominal tenderness in the left upper quadrant and left lower quadrant. There is no right CVA tenderness, left CVA tenderness, guarding or rebound. Genitourinary: Rectum: Normal. Comments: There is no stool impaction on rectal exam Musculoskeletal: General: No tenderness. Normal range of motion. Cervical back: Normal range of motion and neck supple. Skin: General: Skin is warm and dry. Neurological: General: No focal deficit present. Mental Status: She is alert and oriented to person, place, and time. Psychiatric: Behavior: Behavior normal. Diagnostic Testing ED Labs Ordered and Reviewed COMPREHENSIVE METABOLIC PANEL (AK,AV,EU,FV,HL,CHANTEL,MM ,SP) - Abnormal; Notable for the following components: Result Value Ref Range Glucose 100 (*) 74 - 99 mg/dL Anion Gap 8 (*) 9 - 18 mmol/L All other components within normal limits C-REACTIVE PROTEIN (CRP) (AK,AV,EU,FV,HL,CHANTEL,MM ,SP) - Abnormal; Notable for the following components: CRP 0.9 (*) <0.9 mg/dL All other components within normal limits CBC + AUTO DIFF (AK,AV,EU,FV,HL,CHANTEL,MM ,SP) - Abnormal; Notable for the following components: RBC 5.32 (*) 3.90 - 5.20 m/uL RDW-CV 15.4 (*) 11.5 - 15.0 % Platelet Count 435 (*) 150 - 400 k/uL MPV 8.5 (*) 9.0 - 12.7 fL All other components within normal limits HCG URINE - ED(POC) - Normal MAGNESIUM BLOOD (AK,AV,EU,FV,HL,CHANTEL,MM ,SP) EPOC LACTATE (POC) VENOUS BLOOD GAS (POC) Narrative: Location:ED [facility], [address] [place] [address], [id number] EPOC POTASSIUM (POC) VENOUS BLOOD GAS (POC) Narrative: Location:ED [facility], [address] [place] [address], [id number] CT ABD/PEL W IVCON Final Result IMPRESSION: No acute process in the abdomen or pelvis. Workplace Rehabilitation Officer: PSCB Transcribe Date/Time: Jan 04 2021 1:41P Dictated by : TORI FOURNIER MD This examination was interpreted and the report reviewed and electronically signed by: TORI FOURNIER MD on Jan 04 2021 1:44PM EST Procedures ED Cours (more content not included)... Normal [facility] Magnesiumon 01-04-2021 Magnesium [Mass/Vol] 2.2 mg/dL Normal 1.7-2.3 [facility] CNPNon 12-13-2020 CNPN Telephone (OTOLLN) SANDRA FRANKS ([id number]) 89 F Date Time Provider Department 12/13/20 SKYLAR HUMPHRIES During your visit today, we recorded the following information about you: Philip Bennett RN 12/13/2020 8:59 AM Signed Pt calls Last seen Reports Worsening throat s/s Was on steroids for swollen glands-this week-( went to [place] [facility]) Has not tried salt water gargles Unable to sleep - denies pain Feels Constant Post nasal drip with no relief of treatment Denies shortness of breath or trouble breathing appt made on 12-20 with otol provider Advised if s/s worsen to call back Allergies As of Date: 12/13/2020 (Not on File) Date Reviewed: 2020 Reviewed by: Yuly Dixon MA - Fully Assessed Reason for Visit: Patient Update [1234] Prescriptions as of 12/13/2020 Sig: MEDROXYPROGESTERONE 150 MG/ML* 1 ML EVERY 10 12 WEEKS INTRAM* POLYETHYLENE GLYCOL 3350 17 G* MIX 1 PACKET WITH 8 FL OZ. OF* DEXTROAMPHETAMINE-AMP HETAMINE* TAKE 1 CAPSULE BY MOUTH EVERY* AZELASTINE 137 MCG (0.1 %) NA* 1 spray in each nostril twice* Problem List As Of Date: 12/13/2020 (None) Encounter Status:Closed by PHILIP BENNETT RN on 01/10/21 [facility] CNOVon 2020 CNOV Office Visit (OTOLLN ) SANDRA FRANKS ([id number]) 89 F Date Time Provider Department 10/09/20 1:40 PM SKYLAR HUMPHRIES During your visit today, we recorded the following information about you: Temperature 97.6 degrees Skylar Humphries MD 2020 1:52 PM Signed SECTION OF RHINOLOGY, SINUS AND SKULL BASE SURGERY Head and Neck [place], [facility] CLINIC NOTE HPI: Patient is a 20 year old F with hisotry of sore throat and a lot of drainage and feels that there is something there She was given nasal spray and was not taken any medications She was worried if she had covid second time. She gets thick drainage and gagging feelign No past medical history on file. No past surgical history on file. No family history on file. Social History Tobacco Use - Smoking status: Not on file Substance Use Topics - Alcohol use: Not on file - Drug use: Not on file Current Outpatient Medications Medication Sig Dispense Refill - medroxyPROGESTERone (DEPO-PROVERA) 150 mg/mL 1 ML EVERY 10 12 WEEKS INTRAMUSCULARLY - polyethylene glycol 3350 (MIRALAX, GLYCOLAX) 17 gram packet MIX 1 PACKET WITH 8 FL OZ. OF LIQUID EVERY DAY - amphetamine-dextroamp hetamine XR (ADDERALL XR) 30 mg 24 hr capsule TAKE 1 CAPSULE BY MOUTH EVERY DAY IN THE MORNING No current facility-administered medications for this visit. ALLERGIES Not on File ROS: CONSTITUTIONAL: No fevers, chills, nightsweats, unintended weight loss HEENT: - heaches, - nasal congestion/sinus symptoms, - epistaxis, - sense of smell EYES: No diplopia or blurry vision. PULM: No dyspnea, unexplained cough. GI: No dysphagia/odynophagia , problematic reflux : No new urinary complaints, including dysuria, gross hematuria or pyuria. NEURO: No new balance problems, peripheral weakness/paresthesias or numbness of concern. MUSC-SKEL: No new joint pain, swelling, or erythema. PSY: No concerns regarding depression, anxiety or panic. INTEGUMENTARY: No new skin changes (rash, new or changing mole, new growth) PHYSICAL EXAM: 10/09/20 1345 Temp: 36.4 ?C (97.6 ?F) ? General appearance: well developed, well nourished, without obvious deformities ? Communication: the patient speaks with a normal voice without hoarseness, no stridor or stertor ? Overall facial appearance: no obvious scars, lesions or masses ? Parotid and submandibular glands: no masses or tenderness ? Facial strength: normal and equal bilaterally - Eyes: Extra ocular muscles are intact, no diplopia on primary gaze ? Ears: Externally normal in appearance, without scars, lesions, or masses. Both left and right external auditory canals and tympanic membranes are normal ? Nasal exam: Externally normal in appearance, without scars, lesions, or masses. The mucosa is pink, deviated nasal septum, and the visible turbinates are hypertrophied on anterior rhinoscopy - Lips, teeth and gums: No lesions ? Oral cavity and oropharynx: the oral mucosa, hard and soft palates, tongue, tonsil area, and posterior pharyngeal mucosa are without lesions. Floor of mouth is soft without edema. ? Neck: the neck appears symmetric without scars, and on palpation is without masses or lymphadenopathy ? Thyroid: there is no asymmetry, thyromegally or thyroid nodules on palpation Neuro; - Patient is Alert and Oriented to time place and person Procedure: None Radiology: None Sandra was seen today for post-nasal drip. Diagnoses and all orders for this visit: Other chronic sinusitis Hypertrophy of nasal turbinates DNS (deviated nasal septum) - Continue flonase - Saline irrigation - Antibiotic - CT follow after that. - Azelastine Skylar Humphries MD Referring Provider: TICO RAJAN [[id number]] Allergies As of Date: 2020 (Not on File) Date Reviewed: 2020 Reviewed by: Yuly Dixon MA - Fully Assessed Reason for Visit: Post-nasal Drip [1168] Primary Visit Diagnosis:Other chronic sinusitis [J32.8] Other Visit Diagnoses:Hypertrophy of nasal turbinates [J34.3] DNS (deviated nasal septum) [J34.2] Order(s):sulfamethoxa zole-trimethoprim (BACTRIM DS) 800-160 mg per tabletTake 1 tablet by mouth twice daily for 10 days.Disp: 20 tabletRfl: 0 azelastine (ASTELIN) 0.1% nasal spray1 spray in each nostril twice daily for 30 daysDisp: 1 BottleRfl: 5 CT SINUS STEREO WO IVCON [[id number]] Order #: [id number] FUTURE Prescriptions as of 2020 Sig: MEDROXYPROGESTERONE 150 MG/ML* 1 ML EVERY 10 12 WEEKS INTRAM* POLYETHYLENE GLYCOL 3350 17 G* MIX 1 PACKET WITH 8 FL OZ. OF* DEXTROAMPHETAMINE-AMP HETAMINE* TAKE 1 CAPSULE BY MOUTH EVERY* SULFAMETHOXAZOLE 800 MG-TRIME* Take 1 tablet by mouth twice * AZELASTINE 137 MCG (0.1 %) NA* 1 spray in each nostril twice* Problem List As Of Date: 2020 (None) Prescriptions ordered this encounter Disp Refills St (more content not included)... Normal [facility] Vital Signs Date Time Vital Sign Value Performing Clinician Facility 12-08-2023 14:0400 Body height 165.1 cm [facility] 12-08-2023 14:260400 Body mass index (BMI) [Ratio] 46.3 kg/m2 [facility] 12-08-2023 14:26-0400 Body temperature 98 [degF] [facility] 12-08-2023 14:0400 Body weight 126.21 kg [facility] 12-08-2023 14:26-0400 Diastolic blood pressure 97 mm[Hg] [facility] 12-08-2023 14:26-0400 Heart rate 102 /min [facility] 12-08-2023 14:26-0400 Respiratory rate 18 /min [facility] 12-08-2023 14:26-0400 SaO2% (BldA) [Mass fraction] 98 % [facility] 12-08-2023 14:26-0400 Systolic blood pressure 149 mm[Hg] [facility] 10-16-2022 10:24-0500 Blood Pressure Location [facility] 10-16-2022 10:24-0500 Body temperature 98.42 [degF] [facility] 10-16-2022 10:24-0500 Diastolic blood pressure 88 mm[Hg] [facility] 10-16-2022 10:24-0500 Heart rate 80 /min [facility] 10-16-2022 10:24-0500 SaO2% (BldA) [Mass fraction] 92 % Ruth Klonk [facility] 10-16-2022 10:24-0500 Systolic blood pressure 140 mm[Hg] Ruth Klonk [facility] 03-11-2022 16:29-0400 Blood Pressure Location Ruth Klonk [facility] 03-11-2022 16:29-0400 Body temperature 97.88 [degF] Ruth Klonk [facility] 03-11-2022 16:29-0400 Diastolic blood pressure 84 mm[Hg] Ruth Klonk [facility] 03-11-2022 16:29-0400 Heart rate 98 /min Ruth Klonk [facility] 03-11-2022 16:29-0400 SaO2% (BldA) [Mass fraction] 99 % Ruth Klonk [facility] 03-11-2022 16:29-0400 Systolic blood pressure 134 mm[Hg] Ruth Klonk [facility] 11-27-2021 16:25-0400 Blood Pressure Location Ruth Klonk [facility] 11-27-2021 16:25-0400 Body temperature 97.52 [degF] Ruth Klonk [facility] 11-27-2021 16:25-0400 Diastolic blood pressure 80 mm[Hg] Ruth Whittaker [facility] 11-27-2021 16:25-0400 Heart rate 109 /min Ruth Whittaker [facility] 11-27-2021 16:25-0400 SaO2% (BldA) [Mass fraction] 94 % Ruth Whittaker [facility] 11-27-2021 16:25-0400 Systolic blood pressure 134 mm[Hg] Ruth Whittaker [facility] Encounters Encounter Date Encounter Type Care Provider Facility Start: 01-05-2024 ambulatory Lucita waggoner PA-C Facility:[facility] Start: 12-28-2023 ambulatory John haas EMT P-MEDICAL EDUCATION COORDINATOR Facility:[facility] Start: 12-23-2023 End: 12-24-2023 ambulatory [facility] Facility:[facility] Start: 12-08-2023 End: 12-08-2023 ambulatory [facility] Work Phone: Start: 12-08-2023 End: 12-08-2023 Patient encounter procedure [facility] Work Phone: Start: 11-09-2023 End: 11-10-2023 ambulatory John Mina EMT P-MEDICAL EDUCATION COORDINATOR Facility:[facility] Start: 06-15-2023 End: 06-16-2023 ambulatory [facility] Facility:[facility] Start: 05-24-2023 End: 05-25-2023 ambulatory Antonieta Servin Facility:[facility] Start: 05-24-2023 End: 05-24-2023 Patient encounter procedure Antonieta Servin [facility] Start: 04-27-2023 End: 04-28-2023 ambulatory John Mina EMT P-MEDICAL EDUCATION COORDINATOR Facility:[facility] Start: 04-21-2023 End: 04-22-2023 ambulatory John Orona maicol EMT P-MEDICAL EDUCATION COORDINATOR Facility:[facility] Start: 04-09-2023 ambulatory RUTH ZAVALAK Facility:[facility] Start: 04-01-2023 End: 04-01-2023 Emergency department patient visit [facility] Facility:[facility] Start: 02-17-2023 End: 02-18-2023 ambulatory Qi Matthews EMT P-MEDICAL EDUCATION COORDINATOR Facility: [facility] Start: 02-02-2023 End: 02-03-2023 ambulatory ALISSA HOUSE Facility:[facility] Start: 01-21-2023 ambulatory ALISSA W SIDELL Facility [facility] Start: 12-16-2022 End: 12-16-2022 ambulatory Ruth R Klonk Facility:[facility] Start: 12-16-2022 End: 12-16-2022 ambulatory NON STAFF [facility] Work Phone: Start: 12-16-2022 End: 12-16-2022 Patient encounter procedure [facility] [place] Work Phone: Start: 10-16-2022 End: 10-17-2022 ambulatory RUTH R KLONK Facility:[facility] Start: 10-16-2022 End: 10-16-2022 Patient encounter procedure Ruth R Klonk [facility] Start: 10-14-2022 End: 10-15-2022 ambulatory RUTH R KLONK Facility:[facility] Start: 10-14-2022 End: 10-14-2022 Patient encounter procedure Ruth R Klonk [facility] Start: 10-01-2022 End: 10-01-2022 ambulatory NON STAFF [facility] Work Phone: Start: 10-01-2022 End: 10-01-2022 Patient encounter procedure [facility] Work Phone: Start: 09-22-2022 ambulatory RUTH R KLONK Facility :[facility] Start: 06-12-2022 End: 06-13-2022 ambulatory RUTH R KLONK Facility:[facility] Start: 03-11-2022 End: 03-11-2022 Lab Drop off Ruth R Klonk [facility] Start: 03-11-2022 End: 03-11-2022 Patient encounter procedure Ruth R Klonk [facility] Start: 12-01-2021 End: 12-01-2021 Patient encounter procedure Ruth R Klonk [facility] Start: 11-27-2021 End: 11-27-2021 Patient encounter procedure Ruth R Klonk [facility] Start: 12-18-2020 End: 12-18-2020 ambulatory PHUONG LOBATO Facility:[facility] Procedures Date Procedure Procedure Detail Performing Clinician None (qualifier value) Efren Whittaker Plan of Treatment Date Care Activity Detail Author Start: 12-16-2022 [facility] Immunizations Immunization Date Immunization Notes Care Provider Fa cili 06-01-2017 influenza virus vaccine, unspecified formulation Ruth Whittaker [facility] 06-01-2017 meningococcal ACWY vaccine, unspecified formulation Ruth Whittaker [facility] 06-01-2017 meningococcal B vaccine, fully recombinant Ruth Klonk [facility] 10-03-2013 hepatitis A vaccine, unspecified formulation Ruth Klonk [facility] 10-03-2013 HPV, unspecified formulation Ruth Klonk [facility] 09-14-2012 HPV, unspecified formulation Ruth Klonk [facility] 07-05-2012 hepatitis A vaccine, unspecified formulation Ruth Klonk [facility] 07-05-2012 HPV, unspecified formulation Ruth Klonk [facility] 05-27-2011 meningococcal ACWY vaccine, unspecified formulation Ruth Klonk [facility] 05-27-2011 tetanus toxoid, redu angelique diphtheria toxoid, and acellular pertussis vaccine, adsorbed Ruth Klonk [facility] 04-14-2007 varicella virus vaccine Ashl ey Klonk [facility] 06-07-2006 influenza, whole Ruth Klon k [facility] 03-18-2005 DTaP, unspecified formulation Ruth Klonk [facility] 03-18-2005 measles, mumps and rubella virus vaccine Ruth Klonk [facility] 03-18-2005 poliovirus vaccine, unspecified formulation Ruth Klonk [facility] 10-29-2003 haemophilus influenz ae type b vaccine, PRP-T conjugate Ruth Klonk [facility] 09-17-2003 influenza, whole Ruth Klon k [facility] 09-17-2003 varicella virus vaccine Ashl ey Klonk [facility] 10-23-2002 hepatitis B vaccine, pediatric or pediatric/adolescent dosage Ruth Klonk [facility] 06-01-2001 DTaP, unspecified formulation Ruth Klonk [facility] 11-10-2000 Hib, unspecified formulation Ruth Klonk [facility] 11-10-2000 measles, mumps and rubella virus vaccine Ruth Klonk [facility] 08-11-2000 hepatitis B vaccine, pediatric or pediatric/adolescent dosage Ruth Klonk [facility] 04-23-2000 DTaP, unspecified formulation Ruth Klonk [facility] 04-23-2000 poliovirus vaccine, unspecified formulation Ruth Klonk [facility] 03-10-2000 hepatitis B vaccine, pediatric or pediatric/adolescent dosage Ruth Klonk [facility] 02-09-2000 DTaP, unspecified formulation Ruth Klonk [facility] 02-09-2000 poliovirus vaccine, unspecified formulation Ruth Klonk [facility] 1999 DTaP, unspecified formulation Ruth Klonk [facility] 1999 Hib, unspecified formulation Ruth Klonk [facility] 1999 poliovirus vaccine, unspecified formulation Ruth Whittaker [facility] NEGATED: Highlighted row has not occurred!06-12-2022 influenza virus vaccine, unspecified formulation Ruth Whittaker [facility] Payers Date Payer Category Payer Self-pay [id number] 2022 Unknown 2022 Medicaid [id number] 2022 Medicaid [id number] 2021 Unknown [id number] 1999 Unknown [id number] 2.16.84 0.1.819907.3.579.2.593 1999 Unknown [id number] 2.16.8 40.1.770402.3.579.2.727 1999 Unknown [id number] 2.16.8 40.1.351734.3.579.2.727 1999 Unknown [id number] 2.16.8 40.1.898001.3.579.2.727 1999 Unknown [id number] 2.16.8 40.1.181446.3.579.2.727 1999 Unknown [id number] 2.16.8 40.1.593934.3.579.2.727 1999 Unknown [id number] 2.16.8 40.1.684822.3.579.2.727 1999 Unknown [id number] 2.16.8 40.1.974431.3.579.2.727 1999 Unknown [id number] 2.16. 840.1.977699.3.579.2.196 1999 Unknown [id number] 2.16. 840.1.858101.3.579.2.196 1999 Unknown [id number] 2.16. 840.1.437983.3.579.2.196 1999 Unknown [id number] 2.16. 840.1.979906.3.579.2.196 1999 Unknown [id number] 2.16. 840.1.111602.3.579.2.196 1999 Unknown [id number] 2.16. 840.1.802777.3.579.2.196 1999 Unknown [id number] 2.16. 840.1.113344.3.579.2.196 1999 Unknown [id number] 2.16. 840.1.602756.3.579.2.196 1999 Unknown [id number] 2.16. 840.1.508942.3.579.2.196 1999 Unknown [id number] 2.16. 840.1.532279.3.579.2.196 1959 Unknown [id number] Unknown Regular Insurance [id number] Unknown [id number] 2.16.8 40.1.479898.3.579.2.531 Social History Date Type Detail Facility Start: 12-17-2020 End: 05-15-2021 Tobacco smoking status Never smoked tobacco (finding) [facility] Tobacco smoking status Never [facility] Sex Assigned At Female [facility] Start: 2000 Sex Assigned At Female [facility] Functional Status Date Assessment Result Facility 10-16-2022 Functional Status N/A [facility] 03-11-2022 Functional Status N/A [facility] Clinical Notes 2020 to 06-15-2023 Laboratory Note Date & Type Note Facility 06-15-2023 Note Patient Education Ma terials Name: Sandra Franks Current Date: 06/15/2023 14:52:08 [place] : 2000 The following sheet(s) are the Patient Education Leaflets for Sandra Franks Ambulatory Resources for Heart Health Living with heart disease means making a lot of changes. You?re likely to have a range of new feelings to deal with. Reach out to the people close to you. Also, support groups can provide helpful advice. Family and Friends You may have concerns about making changes in your life. Talk over your feelings with someone you trust. Family and friends often want to help but may not know how. Ask a friend to go to the store with you and pick out healthy foods. Be clear about any physical limits you have, such as limiting the distance you can walk. Support from friends and family not only feels good, it?s a great stress tool setter. Resources ?Your cardiac rehabilitation program and local hospital or clinic ?[place] Association of Cardiovascular and Pulmonary Rehabilitation www.aacvpr.org ?[place] Diabetes Association 659-906-3120 www.diabetes.org ?[place] Heart Association 806-211-4504 heart.org ?Your Guide to Lowering Your Blood Pressure with DASH?www.nhlbi.nih.gov/health/publ ic/heart/hbp/dash ?National Heart, Lung, and Blood Hollins 814-031-1500 www.nhlbi.nih.org ?WomenHeart: The National Coalition for Women with Heart Disease 346-924-5711 www.womenheart.org ?The member services department of your health insurance plan ?The medical benefits department, human resources department, or wellness center at your workplace ?An Internet or library search on heart disease, cardiovascular disease, coronary artery disease, peripheral artery disease, or stroke ? [phone] [employer]. [address] [place] [address]. All rights reserved. This information is not intended as a substitute for professional medical care. Always follow your healthcare professional's instructions. Oncology Breast Health: Breast Self-Awareness What is breast self-awareness? Breast self-awareness is knowing how your breasts normally look and feel. Your breasts change as you go through different stages of your life. So it?s important to learn what is normal for your breasts. Knowing about your breasts helps you spot any changes in them right away. Tell your healthcare provider about any changes. Why is breast self-awareness important? Many experts now say that women should focus on breast self-awareness instead of doing a breast self-examination (BSE). These experts include the [place] Cancer Society and the [place] Congress of Obstetricians and Gynecologists. Some experts even advise not teaching women to do a BSE. That?s because research hasn?t shown a clear benefit to doing BSEs. Breast self-awareness is different than a BSE. It isn?t about following a certain method and schedule. It?s about knowing what's normal for your breasts. That way you can spot even small changes right away. If you see any changes, tell your healthcare provider. Changes to look for Call your healthcare provider if you find any changes in your breasts that worry you. These changes may be: ?A lump ?Nipple discharge other than breastmilk, especially if it's bloody ?Swelling ?A change in size or shape ?Skin changes, such as redness, thickening, or dimpling of the skin ?Swollen lymph nodes in the armpit ?Nipple problems, such as pain or redness If you find a lump Call your provider if you find lumpiness in one breast. Also call if you feel something different in the tissue or feel a definite lump. Sometimes lumpiness may be due to menstrual changes. But there may be reason for concern. Your provider may want to see you right away if you have: ?Nipple discharge that is bloody ?Skin changes on your breast, such as dimpling or puckering It?s okay to be upset if you find a lump. Be sure to call your provider right away. Remember that most breast lumps are benign. This means they are not cancer. ? 3948-0750 [employer]. [address] [place] [address], [place] [address]. All rights reserved. This information is not intended as a substitute for professional medical care. Always follow your healthcare professional's instructions. Rheumatology Preventing Osteoporosis: Meeting Your Calcium Needs Your body needs calcium to build and repair bones. But it can't make calcium on its own. That's why it's important to eat calcium-rich foods. Some foods are naturally rich in calcium. Others have calcium added (fortified). It's best to get calcium from the foods you eat. But if you can't get enough, you may want to take calcium supplements. To meet your daily calcium needs, try the foods listed below. Dairy Fish & beans Other sources Source ? Calcium (mg) per serving ? Source ? Calcium (mg) per serving ? Source ? Calcium (mg) per ser (more content not included)... [facility] 05-18-2023 Hospital Discharge instructions Patient Education 05/18/2023 12:48:07 Health Risks of Smoking Health Risks of Smoking Smoking tobacco is very bad for your health. Tobacco smoke contains many toxic chemicals that can damage every part of your body. Secondhand smoke can be harmful to those around you. Tobacco or nicotine use can cause many long-term (chronic) diseases. Smoking is difficult to quit because a chemical in tobacco, called nicotine, causes addiction or dependence. When you smoke and inhale, nicotine is absorbed quickly into your bloodstream through your lungs. Both inhaled and non-inhaled nicotine may be addictive. How can quitting affect me? There are health benefits of quitting smoking. Some benefits happen right away and others take time. Benefits may include: Blood flow, blood pressure, heart rate, and lung capacity may begin to improve. However, any lung damage that has already occurred cannot be repaired. Respiratory symptoms from smoking, such as nasal congestion and cough, may improve over time. Your risk of heart disease, stroke, and cancer is reduced. The overall quality of your health may improve. You may save money, as you will not spend money on tobacco products and may spend less money on smoking-related health issues. What can increase my risk? Smoking harms nearly every organ in the body. People who smoke tobacco have a shorter life expectancy and an increased risk of many serious medical problems. These include: More respiratory infections, such as colds and pneumonia. Cancer. Heart disease. Stroke. Chronic respiratory diseases. Delayed wound healing and increased risk of complications during surgery. Problems with reproduction, , and childbirth, such as infertility, early (premature) births, stillbirths, and defects. Secondhand smoke exposure to children increases the risk of: Sudden infant syndrome (SIDS). Infections in the nose, throat, or airways (respiratory infections). Chronic respiratory symptoms. What actions can I take to quit? Smoking is an addiction that affects both your body and your mind, and long-time habits can be hard to change. Your health care provider can recommend: Nicotine replacement products, such as patches, gum, and nasal sprays. Use these products only as directed. Do not replace cigarette smoking with electronic cigarettes, which are commonly called e-cigarettes. The safety of e-cigarettes is not known, and some may contain harmful chemicals. Programs and community resources, which may include group support, education, or talk therapy. Prescription medicines to help reduce cravings. A combination of two or more quit methods, which may increase the success of quitting. Where to find support Follow the recommendations from your health care provider about support groups and other assistance. You can also visit: U.S. Department of Health and Human Services: www.smokefree.gov [place] Lung Association: www.freedomfromsmoking.org [place] Heart Association: www.heart.org Where to find more information Centers for Disease Control and Prevention: www.cdc.gov World Health Organization: www.who.int Summary Smoking tobacco is very bad for your health. Tobacco smoke contains many toxic chemicals that can damage every part of the body. Smoking is difficult to quit because a chemical in tobacco, called nicotine, causes addiction or dependence. There are immediate and long-term health benefits of quitting smoking. A combination of two or more quit methods may increase the success of quitting. This information is not intended to replace advice given to you by your health care provider. Make sure you discuss any questions you have with your health care provider. Document Revised: 08/11/2022 Document Reviewed: 08/11/2022 [employer] Patient Education 2022 [employer]. 05/18/2023 12:48:06 Attention Deficit Hyperactivity Disorder, Adult Attention Deficit Hyperactivity Disorder, Adult Attention deficit hyperactivity disorder (ADHD) is a mental health disorder that starts during childhood (neurodevelopmental disorder). For many people with ADHD, the disorder continues into the adult years. Treatment can help you manage your symptoms. What are the causes? The exact cause of ADHD is not known. Most experts believe genetics and environmental factors contribute to ADHD. What increases the risk? The following factors may make you more likely to develop this condition: Having a family history of ADHD. Being male. Being born to a mother who smoked or drank alcohol during . Being exposed to lead or other toxins in the womb or early in life. Being born before 37 weeks of (prematurely) or at a low weight. Having experienced a brain injury. What are the signs or symptoms? Symptoms of this condition depend on the type of ADHD. The two main types are inattentive and hyperactive-impulsive. Some people may have symptoms of both types. Symptoms of the inattentive type include: Difficulty paying attention. Making careless mistakes. Not following instructions. Being disorganized. Avoiding tasks that require time and attention. Losing and forgetting things. Being easily distracted. Symptoms of the hyperactive-impulsive type include: Restlessness. Talking too much. Interrupting. Difficulty with: ?Sitting still. ?Feeling motivated. ?Relaxing. ?Waiting in line or waiting for a turn. In adults, this condition may lead to certain problems, such as: Keeping jobs. Performing tasks at work. Having stable relationships. Being on time or keeping to a schedule. How is this diagnosed? This condition is diagnosed based on your current symptoms and your history of symptoms. The diagnosis can be made by a health care provider such as a primary care provider or a mental health wound care coordinator. Your health care provider may use a symptom checklist or a behavior rating scale to evaluate your symptoms. He or she may also want to talk with people who have observed your behaviors throughout your life. How is this treated? This condition can be treated with medicines and behavior therapy. Medicines may be the best option to reduce impulsive behaviors and improve attention. Your health care provider may recommend: Stimulant medicines. These are the most common medicines used for adult ADHD. They affect certain chemicals in the brain (neurotransmitters) and improve your ability to control your symptoms. A non-stimulant medicine for adult ADHD (atomoxetine). This medicine increases a neurotransmitter called norepinephrine. It may take weeks to months to see effects from this medicine. Counseling and behavioral management are also important for treating ADHD. Counseling is often used along with medicine. Your health care provider may suggest: Cognitive behavioral therapy (CBT). This type of therapy teaches you to replace negative thoughts and actions with positive thoughts and actions. When used as part of ADHD treatment, this therapy may also include: ?Coping strategies for organization, time management, impulse control, and stress reduction. ?Mindfulness and meditation training. Behavioral management. You may work with a riding coach who is specially trained to help people with ADHD manage and organize activities and function more effectively. Follow these instructions at home: Medicines Take ujmn-btm-rnsyhvq and prescription medicines only as told by your health care provider. Talk with your health care provider about the possible side effects of your medicines and how to manage them. Lifestyle Do not use drugs. Do not drink alcohol if: ?Your health care provider tells you not to drink. ?You are , may be , or are planning to become . If you drink alcohol: ?Limit how much you use to: ?0 1 drink a day for women. ?0 2 drinks a day for men. ?Be aware of how much alcohol is in your drink. In the [place] one drink equals one 12 oz bottle of beer (355 mL), one 5 oz glass of wine (148 mL), or one 1 oz glass of hard liquor (44 mL). Get enough sleep. Eat a healthy diet. Exercise regularly. Exercise can help to reduce stress and anxiety. General instructions Learn as much as you can about adult ADHD, and work closely with your health care providers to find the treatments that work best for you. Follow the same schedule each day. Use reminder devices like notes, calendars, and phone apps to stay on time and organized. Keep all follow-up visits as told by your health care provider and therapist. This is important. Where to find more information A health care provider may be able to recommend resources that are available online or over the phone. You could start with: Attention Deficit Disorder Association (ADDA): www.add.org National Hollins of Mental Health (NIMH): www.nimh.nih.gov Contact a health care provider if: Your symptoms continue to cause problems. You have side effects from your medicine, such as: ?Repeated muscle twitches, coughing, or speech outbursts. ?Sleep problems. ?Loss of appetite. ?Dizziness. ?Unusually fast heartbeat. ?Stomach pains. ?Headaches. You are struggling with anxiety, depression, or substance abuse. Get help right away if you: Have a severe reaction to a medicine. If you ever feel like you may hurt yourself or others, or have thoughts about taking your own life, get help right away. You can go to the nearest emergency department or call: Your local emergency services (911 in the [place] A suicide crisis helpline, such as the National Suicide Prevention Lifeline at or 192 in the [place] This is open 24 hours a day. Summary ADHD is a mental health disorder that starts during childhood (neurodevelopmental disorder) and often continues into the adult years. The exact cause of ADHD is not known. Most experts believe genetics and environmental factors contribute to ADHD. There is no cure for ADHD, but treatment with medicine, cognitive behavioral therapy, or behavioral management can help you manage your condition. This information is not intended to replace advice given to you by your health care provider. Make sure you discuss any questions you have with your health care provider. Document Revised: 03/04/2022 Document Reviewed: 01/01/2020 [employer] Patient Education 2022 [employer]. Follow Up Care 04/09/2023 12:47:32 With:Antonieta Betancourt Address: [address] [place] [address] [place] [phone] When:Within 3 Month(s) Comments:f/u ADHD, med recheck, MDD/CINDY [facility] 10-20-2022 Evaluation + Plan note Future Scheduled [id number] 10/20/22TSH With T4fr Reflex 10/20/22CBC w/ Auto Diff 10/20/22Iron Level 10/20/22 [facility] 01-10-2021 Note Education Materials Gastroenterology Abdominal Pain, Adult Follow-up with your primary care physician and railroad yard worker to review this emergency room visit. Return to the emergency room for any worsening symptoms. Many things can cause belly (abdominal) pain. Most times, belly pain is not dangerous. Many cases of belly pain can be watched and treated at home. Sometimes, though, belly pain is serious. Your doctor will try to find the cause of your belly pain. Follow these instructions at home: Medicines ? Take bjmh-oae-eevrzjy and prescription medicines only as told by your doctor. ? Do not take medicines that help you poop (laxatives) unless told by your doctor. General instructions ? Watch your belly pain for any changes. ? Drink enough fluid to keep your pee (urine) pale yellow. ? Keep all follow-up visits as told by your doctor. This is important. Contact a doctor if: ? Your belly pain changes or gets worse. ? You are not hungry, or you lose weight without trying. ? You are having trouble pooping (constipated) or have watery poop (diarrhea) for more than 2?3 days. ? You have pain when you pee or poop. ? Your belly pain wakes you up at night. ? Your pain gets worse with meals, after eating, or with certain foods. ? You are vomiting and cannot keep anything down. ? You have a fever. ? You have blood in your pee. Get help right away if: ? Your pain does not go away as soon as your doctor says it should. ? You cannot stop vomiting. ? Your pain is only in areas of your belly, such as the right side or the left lower part of the belly. ? You have bloody or black poop, or poop that looks like tar. ? You have very bad pain, cramping, or bloating in your belly. ? You have signs of not having enough fluid or water in your body (dehydration), such as: ? Dark pee, very little pee, or no pee. ? Cracked lips. ? Dry mouth. ? Sunken eyes. ? Sleepiness. ? Weakness. ? You have trouble breathing or chest pain. Summary ? Many cases of belly pain can be watched and treated at home. ? Watch your belly pain for any changes. ? Take sbpw-flm-kdkxpit and prescription medicines only as told by your doctor. ? Contact a doctor if your belly pain changes or gets worse. ? Get help right away if you have very bad pain, cramping, or bloating in your belly. This information is not intended to replace advice given to you by your health care provider. Make sure you discuss any questions you have with your health care provider. Document Revised: 12/18/2019 Document Reviewed: 12/18/2019 [employer] Patient Education ? 2019 [employer]. [facility] 01-04-2021 Note HNO ID: [id number] Author: RT Ravinder(R) Service: Radiology Author Type: Health Technician Type: Progress Notes Filed: 01/04/2021 12:58 PM Note Text: Radiology Service Progress Note DATE OF SERVICE: January 04, 2021 TIME: 12:56 PM PATIENT IDENTITY VERIFICATION COMPLETED USING TWO (2) STANDARD IDENTIFIERS: Name and Date of confirmed by patient verbally and Name and Date of confirmed by identification band. FALL SCREENING: Has the patient had 2 falls in the last year or 1 fall with injury or currently using an Ambulatory Assistive Device (Walker, Cane, Wheelchair, Crutches, etc.)? Emergency Room Patient: Screened in ED PATIENT GENDER DATA: Female. status: : No status: NO. PATIENT RELEVANT IMPLANT DATA REVIEWED: Not Applicable ALLERGIES: Reviewed and unchanged CONTRAST ALLERGY: NO. EXAM: CT -CONTRAST INDUCED NEPHROPATHY RISK FACTORS: Not applicable CREATININE: Creatinine Date Value Ref Range Status 01/04/2021 0.65 0.58 - 0.96 mg/dL Final eGFR-All Other Races Date Value Ref Range Status 01/04/2021 >60 . Final Comment: eGFR (Estimated GFR) Units of measure: mL/min/1.73 meters squared eGFR is derived from the reexpressed MDRD Study equation using the following parameters: serum creatinine, age, gender and race. The creatinine assay has been calibrated to be traceable to IDMS. An eGFR <60 mL/min/1.73m2 for >3 months is consistent with chronic kidney disease. Refer to KDOQI guidelines for clinical interpretation. In patients with unstable renal function, e.g. those with acute kidney injury, the eGFR may not accurately reflect actual GFR. eGFR- Date Value Ref Range Status 01/04/2021 >60 Final P.O.C.T. RESULTS: POC done: Yes, See Lab Tab January 04, 2021 TREATMENT: N/A PERIPHERAL IV DATA: Ambulatory: Not applicable RADIOLOGY DEPARTMENT: CT; Exam(s) Completed: Abdomen/Pelvis SIGNATURE: RT Ravinder(R) PATIENT NAME: Sandra Franks DATE: January 04, 2021 TIME: 12:56 PM [facility] 2020 Note HNO ID: [id number] Author: Skylar Humphries Service: ? Author Type: Physician Type: Progress Notes Filed: 2020 1:52 PM Note Text: SECTION OF RHINOLOGY, SINUS AND SKULL BASE SURGERY Head and Neck [place], [facility] NOTE HPI: Patient is a 20 year old F with hisotry of sore throat and a lot of drainage and feels that there is something there She was given nasal spray and was not taken any medications She was worried if she had covid second time. She gets thick drainage and gagging feelign No past medical history on file. No past surgical history on file. No family history on file. Social History Tobacco Use - Smoking status: Not on file Substance Use Topics - Alcohol use: Not on file - Drug use: Not on file Current Outpatient Medications Medication Sig Dispense Refill - medroxyPROGESTERone (DEPO-PROVERA) 150 mg/mL 1 ML EVERY 10 12 WEEKS INTRAMUSCULARLY - polyethylene glycol 3350 (MIRALAX, GLYCOLAX) 17 gram packet MIX 1 PACKET WITH 8 FL OZ. OF LIQUID EVERY DAY - amphetamine-dextroamphetamine XR (ADDERALL XR) 30 mg 24 hr capsule TAKE 1 CAPSULE BY MOUTH EVERY DAY IN THE MORNING No current facility-administered medications for this visit. ALLERGIES Not on File ROS: CONSTITUTIONAL: No fevers, chills, nightsweats, unintended weight loss HEENT: - heaches, - nasal congestion/sinus symptoms, - epistaxis, - sense of smell EYES: No diplopia or blurry vision. PULM: No dyspnea, unexplained cough. GI: No dysphagia/odynophagia, problematic reflux : No new urinary complaints, including dysuria, gross hematuria or pyuria. NEURO: No new balance problems, peripheral weakness/paresthesias or numbness of concern. MUSC-SKEL: No new joint pain, swelling, or erythema. PSY: No concerns regarding depression, anxiety or panic. INTEGUMENTARY: No new skin changes (rash, new or changing mole, new growth) PHYSICAL EXAM: 10/09/20 1345 Temp: 36.4 ?C (97.6 ?F) ? General appearance: well developed, well nourished, without obvious deformities ? Communication: the patient speaks with a normal voice without hoarseness, no stridor or stertor ? Overall facial appearance: no obvious scars, lesions or masses ? Parotid and submandibular glands: no masses or tenderness ? Facial strength: normal and equal bilaterally - Eyes: Extra ocular muscles are intact, no diplopia on primary gaze ? Ears: Externally normal in appearance, without scars, lesions, or masses. Both left and right external auditory canals and tympanic membranes are normal ? Nasal exam: Externally normal in appearance, without scars, lesions, or masses. The mucosa is pink, deviated nasal septum, and the visible turbinates are hypertrophied on anterior rhinoscopy - Lips, teeth and gums: No lesions ? Oral cavity and oropharynx: the oral mucosa, hard and soft palates, tongue, tonsil area, and posterior pharyngeal mucosa are without lesions. Floor of mouth is soft without edema. ? Neck: the neck appears symmetric without scars, and on palpation is without masses or lymphadenopathy ? Thyroid: there is no asymmetry, thyromegally or thyroid nodules on palpation Neuro; - Patient is Alert and Oriented to time place and person Procedure: None Radiology: None Sandra was seen today for post-nasal drip. Diagnoses and all orders for this visit: Other chronic sinusitis Hypertrophy of nasal turbinates DNS (deviated nasal septum) - Continue flonase - Saline irrigation - Antibiotic - CT follow after that. - Diane Humphries MD [facility] Evaluation + Plan note Future Appointments Appointment Date:12/01/2021 12:00:00 PM Scheduled Provider:Ruth Whittaker NP Location:[facility] Appointment Type: Open Appointment Date:02/27/2022 03:40:00 PM Scheduled Provider:Ruth Whittaker NP Location:[facility] Appointment Type: Open [facility] Evaluation + Plan note Future Appointments Appointment Date:02/27/2022 03:40:00 PM Scheduled Provider:Ruth Whittaker NP Location:[facility] Appointment Type:FM Open [facility] Evaluation + Plan note Future Appointments Appointment Date:04/10/2022 04:40:00 PM Scheduled Provider:Ruth Whittaker NP Location:[facility] Appointment Type:FM Video Visit [facility] Evaluation + Plan note Future Appointments Appointment Date:10/16/2022 10:20:00 AM Scheduled Provider:Ruth Whittaker NP Location:[facility] Appointment Type:FM Open [facility] Evaluation + Plan note [facility] Evaluation note No assessment inform ation available [facility] Work Phone: Hospital course Narrative No data available for this section [facility] Hospital Discharge instructions No data available for this section [facility] Progress note No data available for this section [facility] Reason for referral (narrative) Referred by: Ruth Whittaker NP [facility] Summary Purpose Family History No Family History Records Found Relationship Condition Age at Onset Recorded Date/T arnie Not Specified No pertinent family history Unknown Relationship Condition Age at Onset Recorded Date/T arnie Not Specified No pertinent family history Unknown Myocardial infarction Unknown father Unknown Advance Directives No Advanced Directives Records Found Advance Directive Response Recorded Date/ Time Advance Directives No July 10:49am Advance Directive Response Recorded Date/ Time Advance Directives No July 11:49am Chief Complaint and Reason for Visit Chief Complaint Sleep apnea 31-90 da y follow up/[facility] patient Chief Complaint E88.81 Chief Complaint Cough, Congestion Additional Source Comments INFORMATION SOURCE (unrecogn ized section and content) DATE CREATED AUTHOR 12/21/2020 [facility] DATE CREATED AUTHOR AUTHOR'S ORGANIZ ATION 01/06/2021 [facility] DATE CREATED AUTHOR AUTHOR'S ORGANIZ ATION 01/19/2021 [facility] DATE CREATED AUTHOR AUTHOR'S ORGANIZ ATION 09/19/2021 [facility] DATE CREATED AUTHOR AUTHOR'S ORGANIZ ATION 04/24/2023 [facility] DATE CREATED AUTHOR AUTHOR'S ORGANIZ ATION 05/26/2023 [facility] DATE CREATED AUTHOR AUTHOR'S ORGANIZ ATION 12/23/2023 [facility] Care Team (unrecognized sect ion and content) Team Status: Inactive Member Role Status Dates NON STAFF Primary Care Provider Active Wilner Lawson MD Attending Provider Active Team Status: Active Member Role Status Dates NON STAFF Primary Care Provider Active Team Status: Inactive Member Role Status Dates NON STAFF Primary Care Provider Active LISA Snowden Attending Provider Active Team Status: Inactive Member Role Status Dates NON STAFF Primary Care Provider Active Start: December 08, 2023 End: December 08, 2023 LISA Monae Attending Provider Active S tart: December 08, 2023 End: December 08, 2023 Goals (unrecognized section and content) Goals may be documented in a n alternate section FOR RECORDS PERTAINING TO PATIENTS WHO ARE OR HAVE BEEN ENROLLED IN A CHEMICAL DEPENDENCY/SUBSTANCEABUSE PROGRAM, SOME INFORMATION MAY BE OMITTED. This clinical summary was aggregated from multiple sources. Caution should be exercised in using it in the provision of clinical care. This summary normalizes information from multiple sources, and as a consequence, information in this document may materially change the coding, format and clinical context of patient data. In addition, data may be omitted in some cases. CLINICAL DECISIONS SHOULD BE BASED ON THE PRIMARY CLINICAL RECORDS. [employer] provides no warranty or guarantee of the accuracy or completeness of information in this document.
--- NOTE | 2023-12-26 11:05 | ED_ITS ---
HPI - Abdominal Pain General Chief Complaint: Abdominal Pain Stated Complaint: RIGHT LOWER ABDOMINAL PAIN Time Seen by Provider: 12/26/23 11:00 Source: patient Mode of arrival: walk-in Limitations: no limitations History of Present Illness HPI narrative: 3-year-old female presents for abdominal pain. Its on the right side of her abdomen but also in her perianal area as well. She was in this emergency department 2 days ago and at [facility] yesterday. She is here today. No fever. She sometimes passes bright red blood in her stool. The pain is mostly in her right groin area. Related Data Previous Rx's ?Medication ?Instructions ?Recorded hydrocortisone 1 % topical cream 1 applic topical BID PRN rectal 12/24/23 (Proctocort) pain 7 days #28.35 grams lidocaine 5 %-phenylephrine 0.25 1 applic topical TID PRN 12/24/23 %-glycern 14.4 %-petrolatm 15 % hemorrhoids #28 grams cream (Preparation H Rapid Relief-Lidocaine) loratadine 10 mg tablet (Claritin) 10 mg PO DAILY #30 tabs 12/24/23 omeprazole 20 mg tablet,delayed 20 mg PO DAILY 8 weeks #56 tabs 12/24/23 release Allergies Allergy/AdvReac Type Severity Reaction Status Date / Time No Known Drug Allergies Allergy Verified 12/24/23 11:00 Review of Systems ROS Narrative A ten point review of systems is negative except as noted above. Exam Narrative Exam Narrative: Nurses note and vital signs reviewed and patient is not hypoxic. General: The patient appears well and in no apparent distress. Patient is resting comfortably on cart. Skin: Warm, dry, no pallor noted. There is no rash noted. Head: Normocephalic, atraumatic Eye: Normal conjunctiva, no drainage Ears, Nose, Mouth, and Throat: oral mucosa is moist. Nares patent. Cardiovascular: Regular Rate and Rhythm Respiratory: Patient is in no distress, no accessory muscle use, lungs are clear to auscultation, no wheezing, rales or rhonchi Back: non-tender GI: Soft and nondistended. Diffuse tenderness on the right side of her abdomen. No masses. Musculoskeletal: The patient has no evidence of calf tenderness, no pitting edema, symmetrical pulses noted bilaterally Neurological: A&O, normal speech Psychiatric: Cooperative Constitutional Vital Signs, click to edit/add: Last Vital Signs Temp 98.4 F 12/26/23 10:26 Pulse 107 H 12/26/23 10:26 Resp 18 12/26/23 10:26 BP 162/103 H 12/26/23 10:26 Pulse Ox 97 12/26/23 10:26 Course Vital Signs Vital signs: Vital Signs Temperature 98.4 F 12/26/23 10:26 Pulse Rate 107 H 12/26/23 10:26 Respiratory Rate 18 12/26/23 10:26 Blood Pressure 162/103 H 12/26/23 10:26 Pulse Oximetry 97 12/26/23 10:26 Temperature 98.4 F 12/26/23 10:26 Pulse Rate 107 H 12/26/23 10:26 Respiratory Rate 18 12/26/23 10:26 Blood Pressure 162/103 H 12/26/23 10:26 Pulse Oximetry 97 12/26/23 10:26 MDM - Abdominal Pain MDM Narrative Medical decision making narrative: CAT scan shows no acute findings and urinalysis shows no evidence of UTI. Symptoms seem to be improved since she has been here and she is able to be discharged home. Treatment diagnosis and follow-up were discussed with the patient. Differential Diagnosis Differential diagnosis: Likely abdominal pain, acute appendicitis, calculus of kidney, constipation and gastroenteritis Lab Data Attestation: I reviewed the patient's lab results. Labs: Lab Results 12/26/23 12/26/23 Range/Units 10:36 13:05 WBC 13.1 H (4.0-11.0) 10^3/uL RBC 5.39 (4.20-5.40) 10^6/uL Hgb 15.4 (12.0-16.0) g/dL Hct 45.8 (36.0-48.0) % MCV 85.0 (81.0-99.0) fL MCH 28.6 (26.7-34.0) pg MCHC 33.6 (29.9-35.2) g/dL RDW 11.8 (11.0-15.0) % Plt Count 415 (150-450) 10^3/uL MPV 9.5 (9.5-13.5) fL Neut % (Auto) 64.6 (43.0-75.0) % Lymph % (Auto) 28.5 (20.5-60.0) % [place] % (Auto) 5.6 (1.7-12.0) % Eos % (Auto) 0.6 L (0.9-7.0) % Baso % (Auto) 0.4 (0.2-2.0) % Neut # (Auto) 8.4 H (1.4-6.5) 10^3/uL Lymph # (Auto) 3.7 (1.2-3.8) 10^3/uL [place] # (Auto) 0.7 (0.3-0.8) 10^3/uL Eos # (Auto) 0.1 (0.0-0.7) 10^3/uL Baso # (Auto) 0.1 (0.0-0.1) 10^3/uL Abs Immat Gran (auto) 0.04 H (0.00-0.03) 10^3/uL Imm/Tot Granulo (auto) 0.3 (0.0-0.5) % Sodium 138 (136-145) mmol/L Potassium 4.0 (3.5-5.1) mmol/L Chloride 102 (98-107) mmol/L Carbon Dioxide 25.4 (21.0-32.0) mmol/L Anion Gap 14.6 BUN 9.0 (7.0-18.0) mg/dL Creatinine 0.85 (0.55-1.02) mg/dL Est GFR ( Amer) >60 (>=60) Est GFR (Non-Af Amer) >60 (>=60) BUN/Creatinine Ratio 10.6 Glucose 105 (74-106) mg/dL Calcium 9.9 (8.5-10.1) mg/dL Total Bilirubin 0.5 (0.2-1.0) mg/dL Direct Bilirubin 0.1 (0.0-0.2) mg/dL AST 20 (15-37) U/L ALT 29 (14-59) U/L Alkaline Phosphatase 101 (46-116) U/L Total Protein 8.7 H (6.4-8.2) g/dL Albumin 3.9 (3.4-5.0) g/dL Globulin 4.8 g/dL Albumin/Globulin Ratio 0.8 Amylase 30 (25-115) U/L Lipase 19.0 (16.0-77.0) U/L Serum HCG, Qual Negative (NEGATIVE) Urine Color Yellow (YELLOW) Urine Clarity Clear (CLEAR) Urine pH 6.5 (5.0-9.0) Ur Specific [place] <=1.005 A (1.005-1.025) Urine Protein Negative (NEG/TRACE) mg/dL Urine Glucose (UA) Negative (NEGATIVE) mg/dL Urine Ketones Negative (NEGATIVE) mg/dL Urine Occult Blood Trace-i (NEGATIVE) Urine Nitrite Negative (NEGATIVE) Urine Bilirubin Negative (NEGATIVE) Urine Urobilinogen 0.2 (0.2-1.0) EU/dL Ur Leukocyte Esterase Negative (NEGATIVE) Urine RBC 0-2 (0-2) #/HPF Urine WBC None seen (NONE SEEN) #/HPF Ur Squamous Epith Cells Few A (NONE/RARE) #/LPF Urine Crystals None seen (None Seen) #/HPF Urine Bacteria None seen (NONE SEEN) #/HPF Urine Casts None seen (NONE SEEN) #/LPF Urine Mucus None seen (NONE SEEN) Imaging Data CT scan - abdomen: Radiologist's impression: ITS Impressions Abdomen/Pelvis CT 12/26/23 11:39 Impression: 1. No evidence of acute abdominal or pelvic process. 2. Colonic diverticulosis with no evidence of diverticulitis. Normal appendix. 3. Gallstones with no evidence of cholecystitis. 4. Small amount of free fluid in cul-de-sac, probably physiological. Electronically authenticated by: SERA VOGT Date: 12/26/2023 12:49 Discharge Plan Discharge Stand Alone Forms: Portal Instructions Chief Complaint: Abdominal Pain Clinical Impression: Abdominal pain Patient Disposition: Home, Self-Care Time of Disposition Decision: 13:29 Condition: Good Mode of Transportation: Private Vehicle Prescriptions / Home Meds: No Action loratadine [Claritin] 10 mg tablet 10 mg PO DAILY Qty: 30 0RF hydrocortisone [Proctocort] 1 % cream 1 applic topical BID PRN (Reason: rectal pain) 7 Days Qty: 28.35 0RF Preparation H Rapid Rlf-Lidocn 5-0.25-14.4-15 % cream 1 applic topical TID PRN (Reason: hemorrhoids) Qty: 28 0RF omeprazole 20 mg tablet,delayed release (DR/EC) 20 mg PO DAILY 56 Days Qty: 56 0RF Print Language: Uruguayan Instructions: Abdominal Pain (ED) Referrals: Physician,Non-Staff, MD [Primary Care Provider] - 1 week
[2023-12-26 11:09] LABS: Basophils Absolute Auto 0.1 10^3/uL (0.0-0.1); Basophils Percent Auto 0.4 % (0.2-2.0); Eosinophils Absolute Auto 0.1 10^3/uL (0.0-0.7); Eosinophils Percent Auto 0.6 % (0.9-7.0); Hematocrit 45.8 % (36.0-48.0); Hemoglobin 15.4 g/dL (12.0-16.0); Immature Granulocytes Abs Auto 0.04 10^3/uL (0.00-0.03); Immature Granulocytes Pct Auto 0.3 % (0.0-0.5); Lymphocytes Absolute Auto 3.7 10^3/uL (1.2-3.8); Lymphocytes Percent Auto 28.5 % (20.5-60.0); Mean Corpuscular HGB Conc 33.6 g/dL (29.9-35.2); Mean Corpuscular Hemoglobin 28.6 pg (26.7-34.0); Mean Platelet Volume 9.5 fL (9.5-13.5); Monocytes Absolute Auto 0.7 10^3/uL (0.3-0.8); Monocytes Percent Auto 5.6 % (1.7-12.0); Neutrophils Absolute Auto 8.4 10^3/uL (1.4-6.5); Neutrophils Percent Auto 64.6 % (43.0-75.0); Platelet Count 415 10^3/uL (150-450); Red Blood Count 5.39 10^6/uL (4.20-5.40); Red Cell Distribution Width 11.8 % (11.0-15.0); White Blood Count 13.1 10^3/uL (4.0-11.0)
[2023-12-26 11:19] LABS: HCG Qualitative NEGATIVE (NEGATIVE)
[2023-12-26 11:30] LABS: Alanine Aminotransferase 29 U/L (14-59); Albumin Globulin Ratio 0.8; Albumin Level 3.9 g/dL (3.4-5.0); Alkaline Phosphatase 101 U/L (46-116); Amylase 30 U/L (25-115); Anion Gap 14.6; Aspartate Amino Transferase 20 U/L (15-37); BUN Creatinine Ratio 10.6; Bilirubin Direct 0.1 mg/dL (0.0-0.2); Bilirubin Total 0.5 mg/dL (0.2-1.0); Calcium 9.9 mg/dL (8.5-10.1); Carbon Dioxide 25.4 mmol/L (21.0-32.0); Chloride 102 mmol/L (98-107); Estimated GFR (African America >60 (>=60); Estimated GFR (Non-African Ame >60 (>=60); Globulin 4.8 g/dL; Glucose 105 mg/dL (74-106); Sodium 138 mmol/L (136-145); Total Protein 8.7 g/dL (6.4-8.2)
--- NOTE | 2023-12-26 11:39 | CT_ITS ---
[address] [address] Patient Name: ADEEL HORVATH MRN: [id number] date: 2000 Sex: F Assigned Patient Location: ER Current Patient Location: Accession/Order Number: [id number] Exam Date: 12/26/2023 12:15 Report Date: 12/26/2023 12:49 At the request of: KERRI ACOSTA Procedure: CT abdomen pelvis w con Indication: Right lower quadrant pain Comparison: None Procedure: Axial images were made from the diaphragms through the symphysis pubis. No oral contrast was given prior to scanning. 100 mL Omnipaque 300 Intravenous contrast was given. Dose reduction techniques were achieved by using automated exposure control and/or adjustment of mA and/or kV according to patient size and/or use of iterative reconstruction technique. Findings: Liver/Biliary System: No liver masses. No intra or extrahepatic biliary dilatation. Gallstones are seen. No evidence of acute cholecystitis. Pancreas/Spleen: No evidence of acute pancreatitis. Pancreatic duct is not dilated. No pancreatic lesions are seen. No splenomegaly or splenic masses. Kidneys/Adrenals: Normal symmetrical nephrograms. No renal masses. No renal or ureteral stones are seen. No hydronephrosis or hydroureter bilaterally. No adrenal nodules. Aorta/Vessels: No evidence of aortic aneurysm. Patent IVC, renal veins, hepatic veins and portal venous system. Bowel/Fluid/Nodes: No bowel dilatation or bowel wall thickening. No evidence of bowel obstruction. Colonic diverticulosis with no evidence of diverticulitis. Normal appendix. No ascites or fluid collections. No adenopathy. Lung bases: Clear. Other findings: No aggressive osseous lesions are seen. Pelvis: No pelvic masses or adenopathy. Bladder, uterus and adnexa are unremarkable. Small amount of free fluid in cul-de-sac, probably physiological. Other Findings: No aggressive osseous lesions are seen. CT/CT abdomen pelvis w con Impression: 1. No evidence of acute abdominal or pelvic process. 2. Colonic diverticulosis with no evidence of diverticulitis. Normal appendix. 3. Gallstones with no evidence of cholecystitis. 4. Small amount of free fluid in cul-de-sac, probably physiological. Electronically authenticated by: SERA VOGT Date: 12/26/2023 12:49
[2023-12-26 13:20] LABS: Bilirubin Urine NEGATIVE (NEGATIVE); Blood Urine TRACE-I (NEGATIVE); Clarity Urine CLEAR (CLEAR); Color Urine YELLOW (YELLOW); Glucose Urine UA NEGATIVE (NEGATIVE); Ketones Urine NEGATIVE (NEGATIVE); Leukocyte Esterase Urine NEGATIVE (NEGATIVE); Nitrite Urine NEGATIVE (NEGATIVE); Protein Urine NEGATIVE (NEG/TRACE); Specific Gravity Urine <=1.005 (1.005-1.025); Urobilinogen Urine 0.2 EU/dL (0.2-1.0); pH Urine 6.5 (5.0-9.0)
[2023-12-26 13:27] LABS: Bacteria Urine NONE SEEN #/HPF (NONE SEEN); Cast Seen? NONE SEEN #/LPF (NONE SEEN); Crystals Seen? None Seen #/HPF (None Seen); Mucus Urine NONE SEEN (NONE SEEN); RBC Urine 0-2 #/HPF (0-2); Squamous Epithelial Cell Urine FEW #/LPF (NONE/RARE); WBC Urine NONE SEEN #/HPF (NONE SEEN)
== END 2023-12-26 13:38 | disposition home or self-care (01) ==
PROVIDERS: Emergency Provider Emergency Medicine
DX: R10.9 Unspecified abdominal pain (principal)
CPT/HCPCS: 36415; 74177; 80048; 80076; 81001; 82150; 83690; 84703; 85025; 99285; Q9967